=== PATIENT | male | born 1955 | race Caucasian/White ===

== ENCOUNTER → 2016-05-31 | Outpatient (CLI) | payer OTHER ==
[~2016-05-31] MED LIST: ASPEC81 PO; ATOR10TA88 PO; CIME-56 PO; MULT-923 PO; RMCI IV
--- NOTE | 2016-06-06 17:09 | EEG Procedure Note ---
EEG Procedure Note Date of Service May 31, 2016. Start / End Times Start Time: 05/31/2016 at 1:42 PM End Time: 06/02/2016 at 1:17 PM Referring Physician Enrike Miller History This is a 61-year-old male with cognitive impairment and spells concerning for possible seizures. Ambulatory EEG for further evaluation of possible seizure etiology. Home Medication List Scheduled Aspirin (Aspirin EC Low Dose), 81 MG PO DAILY Cimetidine (Tagamet), 400 MG PO QID Infliximab (Remicade), 100 MG IV Q8WK Multiple Vitamins W/ Minerals (Multivitamin Men), 1 TAB PO DAILY Description This is a 21 electrode ambulatory EEG with a single channel dedicated to limited EKG. The electrodes were placed in accordance with the International 10- 20 system. There was noted to be a diffuse electrode artifact on June 01 between 12 AM and 6 AM and 10:46 PM to 6 AM on June 02. These periods of diffuse electrode artifact caused severe limitation in the region interpretation of the EEG during those times. At the start of the recording the patient was in an awake state. Background was well organized and composed of symmetric mixed alpha and beta frequencies. There was a symmetric well-formed moderate amplitude 10-11 Hz posterior dominant rhythm that was reactive to eye opening and closure. Sleep was indicated by vertex waves, symmetric sleep spindles, and slow wave sleep. Patient journal was returned and reviewed. Events were closely reviewed on EEG before and after reported events time. Patient reported a single possible clinical events 1:06 PM on 06/01/2016. Description was unusual feeling. On EEG there was noted to be 01 and EKG lead electrode artifact. Overall there was no changes to the normal awake background on EEG before and after the reported event. Interpretation This is a normal 48hr ambulatory EEG. There was no electrographic seizures or epileptiform discharges. Clinical Correlation There was no EEG correlation to single reported possible clinical event as described above. A normal EEG does not rule out epilepsy if there is a strong clinical concern or for clinical spell types not captured. While some normal sleep was captured on EEG in the afternoons and evening, there was significant severe diffuse electrical artifact over both nights that severely limiting nighttime recording and evaluation of his overnight sleep.
== END | disposition home or self-care (01) ==
LOC: C.NEUR 13:10
PROVIDERS: ATTEND Internal Medicine Geriatric Medicine
DX: G31.84 Mild cognitive impairment of uncertain or unknown etiology (principal)

== ENCOUNTER 2016-06-09 08:04 | Observation (INO) | payer OTHER ==
[~2016-06-09] VITALS: Ht 180.3 cm; Wt 85.4 kg
[~2016-06-09 08:04] MED LIST changes: -ATOR10TA88 PO
[2016-06-09] MEDS ORDERED: ATOR10TA88 PO (08:26)
--- NOTE | 2016-06-09 08:54 | EMERGENCY ROOM VISIT NOTE ---
History Report prepared by Rachel: Yaquelin Pickens Under the Supervision of: Dr. Aliyah Muñoz D.O. First contact with patient: 08:13 Chief Complaint: WEAKNESS Stated Complaint: STROKE LIKE SYMPTOMS/SEIZURE History of Present Illness The patient is a 61 year old male who presents to the Emergency Room with complaints of recurrent episodes of altered sensation in the past several months. Per patient's , the patient initially started having these episodes this past February. He also had a 7 episodes within a period of a few hours in the middle of April and was hospitalized at that time. Since then, he did not have any episodes until he had 2 episodes yesterday. This morning, he had a total of 3 episodes since waking up on his own around 6:30AM. Each episode is almost exactly the same and lasts between 5 and 30 seconds before resolving. During the episodes, he has a strange "electrical sensation" throughout his entire body, an odd taste in his mouth, and notices a burning smell. He is completely coherent during the episodes and does not need to sit down during them. He typically can continue on with whatever he was doing when the episode ends. He does not lose consciousness and does not feel like he is going to lose consciousness. Denies falling, loss of control of urine, visual changes, shaking , nausea, memory loss, or confusion during/after the episodes. He was awake and standing when the first episode occurred today. Since the episodes started in February, he has followed up with Dr. Miller of neurology. The patient had a 48 hour ambulatory EEG last week which was normal. He is scheduled for a Holter monitor next week. The patient states that he has a history of MCI (Mild Cognitive Impairment) and has some memory issues at baseline. Upon arrival to the emergency room today the patient is asymptomatic and feels normal. Source of History: patient, spouse/significant other Onset: a few months ago Position: other (Global) Quality: other (altered sensation) Timing: other (episodic) Associated Symptoms: No LOC, No nausea, No urinary symptoms Note: Other symptoms: "electrical sensation" throughout his entire body, odd taste in mouth, burning smell Review of Systems See HPI for pertinent positives & negatives. A total of 10 systems reviewed and were otherwise negative. Past Medical & Surgical Medical Problems: (1) Blurred vision (2) Crohns disease (3) MCI (mild cognitive impairment) Family History FH: cancer FH: gallbladder disease Social History Smoking Status: Never Smoker Marital Status: Housing Status: lives with family Occupation Status: retired Current/Historical Medications Scheduled Aspirin (Aspirin EC Low Dose), 81 MG PO DAILY Atorvastatin (Lipitor), 10 PO DAILY Cimetidine (Tagamet), 400 MG PO QID Infliximab (Remicade), 100 MG IV Q8WK Multiple Vitamins W/ Minerals (Multivitamin Men), 1 TAB PO DAILY Allergies Coded Allergies: No Known Allergies (Unverified , 06/09/16) Physical Exam Vital Signs Date Time Temp Pulse Resp B/P Pulse Ox O2 Delivery O2 Flow Rate FiO2 06/09/16 13:39 86 16 136/84 98 06/09/16 13:17 95 Room Air 06/09/16 13:17 91 16 131/87 95 Room Air 06/09/16 12:59 88 144/95 06/09/16 12:53 87 06/09/16 12:47 94 14 149/96 98 Room Air 06/09/16 12:33 104 18 155/96 97 Room Air 06/09/16 12:10 101 17 162/97 99 06/09/16 11:44 114 18 174/119 06/09/16 11:09 110 17 175/105 98 Room Air 06/09/16 09:50 103 18 185/97 99 Room Air 06/09/16 09:28 67 19 161/88 96 Room Air 06/09/16 08:27 88 06/09/16 08:07 36.8 99 15 158/92 100 Room Air Physical Exam HEENT: Head - normocephalic and atraumatic Pupils are equal, round, and reactive to light. Extraocular eye muscles are intact, and sclera are anicteric. Nose - moist nasal mucosa without discharge. Mouth - moist buccal mucosa. Oropharynx is nonerythematous and there is no tonsillar exudate or edema noted. Neck: Supple; no JVD, nuchal rigidity, cervical lymphadenopathy, or auscultated bruits. Heart: Regular rate and rhythm. There is a normal S1 and S2 with no murmurs, clicks, or gallops appreciated. Lungs: Clear to auscultation bilaterally with no wheezes, rales, or rhonchi. Abdomen: Soft, completely nontender, nondistended, with good bowel sounds. There are no palpable pulsatile masses or hepatosplenomegaly. There is no guarding, rigidity, or rebound noted. Extremities: No evidence of cyanosis, clubbing, or edema. There are easily palpable peripheral pulses. Skin: warm and dry with good turgor and no rashes. Medical Decision & Procedures Laboratory Results 06/09/16 08:20 Red Blood Count 4.83, Mean Corpuscular Volume 95.0, Mean Corpuscular Hemoglobin 32.9, Mean Corpuscular Hemoglobin Concent 34.6, Mean Platelet Volume 11.6, Neutrophils (%) (Auto) 44.2, Lymphocytes (%) (Auto) 42.9, Monocytes (%) (Auto) 9.3, Eosinophils (%) (Auto) 2.6, Basophils (%) (Auto) 0.6, Neutrophils # (Auto) 3.71, Lymphocytes # (Auto) 3.60, Monocytes # (Auto) 0.78, Eosinophils # (Auto) 0.22, Basophils # (Auto) 0.05 06/09/16 08:20 Test 06/09/16 08:20 White Blood Count 8.39 K/uL (4.8-10.8) Red Blood Count 4.83 M/uL (4.7-6.1) Hemoglobin 15.9 g/dL (14.0-18.0) Hematocrit 45.9 % (42-52) Mean Corpuscular Volume 95.0 fL (80-100) Mean Corpuscular Hemoglobin 32.9 pg (25-34) Mean Corpuscular Hemoglobin Concent 34.6 g/dl (32-36) Platelet Count 205 K/uL (130-400) Mean Platelet Volume 11.6 fL (7.4-10.4) Neutrophils (%) (Auto) 44.2 % Lymphocytes (%) (Auto) 42.9 % Monocytes (%) (Auto) 9.3 % Eosinophils (%) (Auto) 2.6 % Basophils (%) (Auto) 0.6 % Neutrophils # (Auto) 3.71 K/uL (1.4-6.5) Lymphocytes # (Auto) 3.60 K/uL (1.2-3.4) Monocytes # (Auto) 0.78 K/uL (0.11-0.59) Eosinophils # (Auto) 0.22 K/uL (0-0.5) Basophils # (Auto) 0.05 K/uL (0-0.2) RDW Standard Deviation 43.9 fL (36.4-46.3) RDW Coefficient of Variation 12.7 % (11.5-14.5) Immature Granulocyte % (Auto) 0.4 % Immature Granulocyte # (Auto) 0.03 K/uL (0.00-0.02) Anion Gap 6.0 mmol/L (3-11) Est Creatinine Clear Calc Drug Dose 62.7 ml/min Estimated GFR () 67.8 Estimated GFR (Non- 58.5 BUN/Creatinine Ratio 13.8 (10-20) Calcium Level 9.6 mg/dl (8.5-10.1) Total Bilirubin 0.4 mg/dl (0.2-1) Aspartate Amino Transf (AST/SGOT) 24 U/L (15-37) Alanine Aminotransferase (ALT/SGPT) 46 U/L (12-78) Alkaline Phosphatase 85 U/L (45-117) Total Creatine Kinase 56 U/L (39-308) Creatine Kinase MB 1.8 ng/ml (0.5-3.6) Creatine Kinase MB Ratio 3.2 (0-3.0) Troponin I < 0.015 ng/ml (0-0.045) Pro-B-Type Natriuretic Peptide 38 pg/ml (0-900) Total Protein 7.9 gm/dl (6.4-8.2) Albumin 4.1 gm/dl (3.4-5.0) Globulin 3.8 gm/dl (2.5-4.0) Albumin/Globulin Ratio 1.1 (0.9-2) Thyroid Stimulating Hormone (TSH) 2.810 uIu/ml (0.300-4.500) Laboratory results per my review. ECG Indication: weakness Rate (beats per minute): 92 Rhythm: normal sinus Findings: RBBB, no acute ischemic change, no ectopy Comparison ECG Date: 05/03/2016 Change: no significant change Change: 2nd in-hospital EKG: Sinus tachycardia at 124 BPM, bifascicular block, no ischemia or ectopy. 3rd in-hospital EKG: Normal sinus at 99 BPM, bifascicular block, no ischemia or ectopy. ED Course 0815: Past medical records reviewed. The patient was evaluated in room A10. A complete history and physical exam was performed. A twelve-lead EKG was obtained. 0832: I discussed the case with Dr. Paul Guerin Neurology. He recommended having a Holter monitor placed now if possible and follow up with neurology and his PCP. 0938: The cardiopulmonary lab does not have any monitors to place until Monday. 0944: I reassessed the patient and discussed discharge instructions with him. The patient got upset when I told him that he could not drive a vehicle and went into a tachycardic rhythm in the 170s. 1020: I reassessed the patient. While I was in the room, he had an episode with a strange smell in nose and his hands were shaking slightly. The episode lasted 5-7 seconds. There were no EKG changes on the monitor during this episode. 1031: I discussed the case with Dr. Hector Guerin Cardiology. He will evaluate the patient in the ED. 1051: I reassessed the patient and updated him on the plan. He said that he now refuses to see [facility] because his health insurance has changed and won't cover [facility] providers. 1058: I discussed the case with Dr. Merritt [place] [facility]. He will evaluate the patient in the ED. 1059: I spoke with Dr. Young and told him he no longer needed to be involved in the patient's case. 1155: I had a long conversation with Dr. Merritt regarding the case. 1232: Upon reevaluation, I discussed findings and results with the patient and his . They verbalized agreement of the treatment plan. He again refused a [facility] doctor. 1247: I spoke with Dr. Sullivan of the [facility]. The patient will be evaluated for further management and care. Medical Decision The patient is a 61 year old male who presents to the ED with episodes of altered sensation. Differential diagnosis includes anxiety, seizure, tremor. Patient has a history of these episodes that involve different smells and electrical sensations throughout his body. He has had a previous EKG, TRACEY, 48 hour EEG and evaluation by neurology. The patient was hypertensive while here in the emergency department. During most of his stay, he was tachycardic. He became quite tachycardic when he was upset with the discussion about his driving privileges. [employer] evaluated him here in the ER and felt that he would require further inpatient care to workup this tachycardia, hypertension, and these episodes that he describes. The patient is resting comfortably now here in the emergency department. He has remained hemodynamically stable. I discussed the case with the [facility] hospitalist group and they will evaluate for further management. Consults Time Called: 08 Consulting Physician: Dr. Paul Guerin Neurology Returned Call: 0832 I discussed the case with him. He recommended having a Holter monitor placed now if possible and follow up with neurology and his PCP. Additional Consults: Time Called: 1025 Consulted Physician: Dr. Hector Guerin Cardiology Returned Call: 1031 Additional Comments: I discussed the case with him. He will evaluate the patient in the ED. Time Called: 1052 Consulted Physician: Dr. Shaina [place] [facility] Returned Call: 1056 Additional Comments: I discussed the case with him. He will evaluate the patient in the ED. OTHER CONSULTS: 1059: I spoke with Dr. Hector Guerin Cardiology and told him he no longer needed to be involved in the patient's case. 1155: I had a long conversation with Dr. Shaina York [facility] regarding the case. 1247: I spoke with Dr. Sullivan of the [facility]. The patient will be evaluated for further management and care. Impression Primary Impression: Tachycardia Additional Impression: Hypertension Scribe Attestation The scribe's documentation has been prepared under my direction and personally reviewed by me in its entirety. I confirm that the note above accurately reflects all work, treatment, procedures, and medical decision making performed by me. Departure Information Dispostion Being Evaluated By Hospitalist Referrals Valentina Jay D.O. (PCP) Patient Instructions My [facility] Problem Qualifiers Additional Impression:
[2016-06-09] MEDS ORDERED: METOPROLOL TARTRATE 1 MG/ML VIAL IV STA (12:37)
[2016-06-09 13:17] VITALS: O2SAT 95; Ht 180.3 cm; Wt 85.4 kg
[2016-06-09] MEDS ORDERED: NITROGLYCERIN 0.4 MG SL PER TAB CHARGE SL PRN (14:00)
[2016-06-09] MEDS ORDERED: ZOLPIDEM TARTRATE 5 MG TAB PO PRN (14:00)
[2016-06-09] MEDS ORDERED: ACETAMINOPHEN 325 MG TAB PO PRN (14:00)
[2016-06-09] MEDS ORDERED: ONDANSETRON INJ 2 MG/ML 2 ML VIAL IV PRN (14:00)
--- NOTE | 2016-06-09 14:00 | CARDIOLOGY CONSULTATION ---
DATE OF CONSULTATION: 06/09/2016 CONSULTING PHYSICIAN: Dr. Muñoz. REASON FOR CONSULTATION: Tachycardia and neurologic symptoms. HISTORY OF PRESENT ILLNESS: Mr. Altamirano is a 61-year-old gentleman with a history significant for a right bundle-branch block and left anterior fascicular block, mild cognitive impairment, Crohn's disease, and neurologic complaints, presented to the ER with recurrent neurologic events. His neurologic events are described as a funny feeling running throughout his entire body accompanied by a strange taste or smell. The symptoms last for a few seconds and then spontaneously resolved. There is no specific trigger for these symptoms. His has noted on a rare occasion, there is also some shaking of his hands. These symptoms initially started in February of 2016. He had 7 episodes in April, which prompted a hospitalization, which also lead to a transesophageal echo performed by Dr. Young. This was unremarkable for any ASD or PFO. He had one episode yesterday, 3 episodes prehospital and actually one episode while on telemetry while Dr. Muñoz was in the room with him. These symptoms can occur at anytime such as sitting, standing, or lying in bed. Currently, he feels back to his baseline. He denies any chest pain, shortness of breath, syncope, near syncope, palpitations, lightheadedness, dizziness, or edema. He denies any of these symptoms during his neurologic episodes. He did have one episode of syncope greater than 10 years ago after carpal tunnel syndrome. This occurred immediately following suture removal from his hand. He has not had any recurrent syncope or near syncope. He brought with him today on his smart phone list of his blood pressure and heart rate at home. For the past month, his blood pressure has been normotensive and sometimes slightly hypotensive with systolic blood pressures in the 90s. His heart rate other than on one occasion, was greater than 100 on a consistent basis, ranging up into the 120s. When reviewing old hospitalization records, his heart rate is typically not tachycardic. He denies any recent fevers, chills, abdominal pain, nausea, vomiting, melena, hematochezia, hematuria, diarrhea, stroke, rash, or abdominal pain. He did have a lumbar punctures in the past x2 when he was being evaluated for Lyme disease. He was treated with an oral outpatient course. This was in 2011, in April. He follows with Dr. Miller for neurology as an outpatient for mild cognitive impairment. He is scheduled to see him next week. He also had an outpatient Holter monitor scheduled for early next week to evaluate for any arrhythmias as cause of his symptoms. REVIEW OF SYSTEMS: As above and otherwise review of systems is unremarkable. PAST MEDICAL HISTORY: 1. Crohn's disease. 2. Cognitive impairment. 3. Denies a formal history of dyslipidemia, but has been on statin therapy. HOME MEDICATIONS: Include: 1. Aspirin 81 mg daily. 2. Lipitor 10 mg daily. 3. Tagamet 400 mg p.o. q.i.d. since the . 4. Remicade 100 mg IV q. 8 weeks. 5. Multivitamin. ALLERGIES: No known drug allergies. SOCIAL HISTORY: Denies tobacco, alcohol or drug abuse. He is and lives with his . He has no children. 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 His is present at the bedside. FAMILY HISTORY: Father had myocardial infarction in his 50s. PHYSICAL EXAMINATION: VITAL SIGNS: Temperature 36.8 degrees, heart rate was in the low 100s throughout today's visit at the bedside, respiratory rate 14, blood pressure 174/119 mmHg, and oxygen saturation 98% on room air. GENERAL: No acute distress. He is alert and oriented x3. HEENT: Anicteric sclerae. NECK: No appreciable JVD. No bruits. Normal carotid upstrokes bilaterally. CARDIAC EXAMINATION: PMI was nonpalpable. There was no ventricular heave. Tachycardic, but regular, normal S1 and S2. No murmurs, rubs, or gallops were auscultated. LUNGS: Clear to auscultation bilaterally without wheezes, rales or rhonchi. ABDOMEN: Soft, nontender, and nondistended. Normoactive bowel sounds. No bruits noted. EXTREMITIES: 2+ radial pulses bilaterally. 2+ dorsalis pedis pulses bilaterally. No cyanosis. No palpable cords. No pitting edema. PSYCHIATRIC: Affect appears appropriate. Telemetry personally reviewed. Sinus tachycardia. He became more tachycardic when he became visibly upset in the Emergency Department, but the rhythm remains sinus. At approximately 10:23, he had another episode of a strange taste/smell and there were no arrhythmias at that time. There were no pauses or high grade block. ECGs personally reviewed. Initial ECG sinus rhythm at 92 beats per minute. Right bundle-branch block. Left anterior fascicular block. Not significantly changed from 05/03/2016 ECG. Repeat ECG demonstrated sinus tachycardia at 124 beats per minute. Right bundle-branch block and left anterior fascicular block. LABORATORY DATA: From April 2016 were reviewed. Labs on 05/05/2016, white blood cell count 7.98, hemoglobin 15.3, and platelets 206. Labs on 05/03/2016 demonstrated sodium 141, potassium 3.7, BUN 17, and creatinine 1.3. TSH 7.7 and magnesium 2.3. Tox screen was negative on 05/04/2016. Urinalysis was also unremarkable at that time. Brain MRI on 05/04/2016 report reviewed. No acute intracranial findings. No masses. Mild presumed small vessel disease per radiology. Neck MRA on 05/05/2016: No significant stenosis, occlusion, or dissection within the carotid or vertebral arteries. Transesophageal echo on 05/05/2016: Images personally reviewed. LV systolic function appeared normal. There were no significant valvular abnormalities. No visualized ASD. ASSESSMENT AND PLAN: 1. Right bundle-branch block and left anterior fascicular block: Agree with outpatient monitoring to monitor for any significant block. This does not appear to be related to his neurologic symptoms. 2. Neurologic symptoms: Etiology uncertain. He had an episode while on telemetry and there was no arrhythmia that corresponds with such. Therefore, arrhythmias not playing a role in his symptoms. Recommend a neurology evaluation. He has been evaluated by neurology in the past. 3. Hypertension/hypertensive urgency: His blood pressure is typically well controlled according to his home blood pressure cuff, but he is significantly hypertensive here. Would recommend inpatient monitoring given presentation with neurologic symptoms in the setting of severe hypertension. Workup, as appropriate, per hospitalist service. 4. Tachycardia: He appears to have been tachycardic at home for at least the past month. When reviewing other hospitalizations, he was not typically tachycardic at that time. There were no new labs done yet at this admission and therefore recommend CBC, basic metabolic panel, TSH, and magnesium levels. Labs are being ordered at this time by Dr. Muñoz. Also, could consider infectious workup if appropriate; however, there does not appear to be any obvious infection at this time. If there is a leukocytosis, however, would further evaluate. If he is found to have inappropriate sinus tachycardia, could start low dose beta emily especially given his hypertension. Would first like to evaluate for any causes of tachycardia, however. Tagamet can cause tachycardia; however, he believes that he has been on that medications since the without any recent change in dose. If he remains tachycardic, could consider discontinuation of Tagamet if okay with his GI doctor. 5. Disposition: Plan of care has been discussed with Dr. Muñoz in the Emergency Department. Admission is recommended at this time for possible hypertensive urgency given neurologic symptoms with significant elevation in blood pressure. Please feel free to call for any other questions or concerns. Thank you for allowing me to participate in the care of Mr. Dean Hobbseric. Sincerely,
[2016-06-09 14:31] VITALS: O2SAT 96
--- NOTE | 2016-06-09 14:35 | History and Physical ---
History & Physical Date & Time of Service: Jun 09, 2016 at 14:00 Chief Complaint: Strange body sensation, abnormal smell and taste Primary Care Physician: No Doctor, Assigned History of Present Illness Source: patient, family Mr. Altamirano is a 61-year-old male with a history of mild cognitive impairment , Crohn's disease maintained on Remicade, and dyslipidemia. He was admitted here in April 2016 after complaining of recurrent episodes of a strange sensation coming over his body associated with apparent olfactory and gustatory hallucinations. He can only vaguely describe the sensation that comes over his body, saying that it feels "electric" or like a numbness that affects his entire body from the shoulders down. The episodes are very brief, lasting only seconds at a time. During his admission in April 2016, he was seen by Neurology and subsequently underwent MRI/MRA head and MRA neck, as well as an EEG. These tests were non-revealing, and he was discharged home. He also had a 48-hour ambulatory EEG between 05/31-06/02/2016 that was reported as normal. He was scheduled for a 48-hour Holter next week. This morning, he reports having 3 more episodes that he says were the same as his previous episodes, prompting him to seek care in the ED. In the ED, he says that he had a 4th episode witnessed by the ED physician. Also, he was noted to be tachycardic to the 170s on the monitor. EKG initially showed NSR with a left anterior fascicular block and a right bundle branch block. Repeat EKG showed sinus tachycardia at a rate of 124bpm. The LAFB and RBBB were again present. He was evaluated by Cardiology in the ED and recommended admission for observation. The patient denies any recent illness. He denies headache, chest pain, palpitations, cough, dyspnea, abdominal pain, nausea, vomiting, or diarrhea. He denies any urinary symptoms, focal weakness, or paresthesia. 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 Physical Exam Vital Signs Date Time Temp Pulse Resp B/P Pulse Ox O2 Delivery O2 Flow Rate FiO2 06/09/16 13:39 86 16 136/84 98 06/09/16 13:17 95 Room Air 06/09/16 13:17 91 16 131/87 95 Room Air 06/09/16 12:59 88 144/95 06/09/16 12:53 87 06/09/16 12:47 94 14 149/96 98 Room Air 06/09/16 12:33 104 18 155/96 97 Room Air 06/09/16 12:10 101 17 162/97 99 06/09/16 11:44 114 18 174/119 06/09/16 11:09 110 17 175/105 98 Room Air 06/09/16 09:50 103 18 185/97 99 Room Air 06/09/16 09:28 67 19 161/88 96 Room Air 06/09/16 08:27 88 06/09/16 08:07 36.8 99 15 158/92 100 Room Air General Appearance: no apparent distress Head: normocephalic, atraumatic Eyes: PERRL, sclerae normal ENT: pharynx normal Neck: no JVD, trachea midline Respiratory/Chest: lungs clear, normal breath sounds, no respiratory distress Cardiovascular: regular rate, rhythm, no gallop, no murmur Abdomen/GI: normal bowel sounds, non tender, soft Back: normal inspection Extremities/Musculoskelatal: no pedal edema Neurologic/Psych: alert, normal mood/affect, oriented x 3 Skin: normal color, warm/dry Diagnostics Laboratory Results Results Past 24 Hours Test 06/09/16 12:37 Range/Units Creatine Kinase MB Ratio 0-3.0 EKG EKG #1 Normal sinus rhythm Possible Left atrial enlargement Right bundle branch block Left anterior fascicular block Bifascicular block Abnormal ECG When compared with ECG of 03-MAY-2016 22:49, No significant change was found EKG #2 Sinus tachycardia Possible Left atrial enlargement Right bundle branch block Left anterior fascicular block Bifascicular block Abnormal ECG When compared with ECG of 09-JUN-2016 08:18, (unconfirmed) No significant change was found Impression Assessment and Plan (1) Abnormal EKG Status: Acute Assessment & Plan: Unclear if dysrhythmia could be contributing to his symptoms. Will keep on a monitor and await further recommendations from Cardiology. (2) Neurologic disorder Status: Acute Assessment & Plan: Etiology of these episodes remains unclear. I question whether he is having gustatory and olfactory hallucinations as part of his neurodegenerative disease. This wouldn't seem to explain the odd sensation he gets over his body or the fact that all these symptoms occur simultaneously. Neurology consulted. Will follow up their recs. He's already had non- revealing MRI, EEG, and 48-hour EEG. (3) MCI (mild cognitive impairment) Status: Chronic Assessment & Plan: Appears stable. Not on any medications. (4) Crohns disease Status: Chronic Assessment & Plan: Appears stable on Remicade as outpatient. Level of Care Telemetry Advanced Directives Existing Advance Directive: Yes Existing Living Will: Yes Existing Power of Optical Coating Technician: Yes VTE Prophylaxis VTE Risk Assessment Done? Y/N: Yes Risk Level: Low Given or contraindicated: Treatment not indicated
[2016-06-09 15:05] LABS: BASO % 0.6 %; BASO ABS # 0.05 K/uL (0-0.2); COMPLETE YES; EOS % 2.6 %; HEMATOCRIT 45.9 % (42-52); IG% 0.4 %; LYMPH % 42.9 %; MEAN CORPUSCULAR HEMOGLOBIN 32.9 pg (25-34); MEAN CORPUSCULAR HGB CONC 34.6 g/dl (32-36); MEAN PLATELET VOLUME 11.6 fL (7.4-10.4); MONO % 9.3 %; NEUT % 44.2 %; PLATELET COUNT 205 K/uL (130-400); RED BLOOD COUNT 4.83 M/uL (4.7-6.1); WHITE BLOOD COUNT 8.39 K/uL (4.8-10.8)
[2016-06-09 15:14] LABS: ALT/SGPT 46 U/L (12-78); BLOOD UREA NITROGEN 18 mg/dl (7-18); BUN/CREATININE RATIO 13.8 (10-20); CALCIUM 9.6 mg/dl (8.5-10.1); CARBON DIOXIDE 27 mmol/L (21-32); CHLORIDE 109 mmol/L (98-107); GLUCOSE 111 mg/dl (70-99); POTASSIUM 4.7 mmol/L (3.5-5.1); SODIUM 142 mmol/L (136-145)
[2016-06-09 15:24] LABS: ALB/GLOB RATIO 1.1 (0.9-2); ALKALINE PHOSPHATASE 85 U/L (45-117); AST/SGOT 24 U/L (15-37); CKMB/CK RATIO 3.2 (0-3.0)
[2016-06-09] MEDS ORDERED: IV FLUIDS COMPLETED PRN (15:30)
[2016-06-09] MEDS: CIMETIDINE 400 MG TAB PO SCH ×2 (17:39→20:51)
[2016-06-09 19:13] VITALS: BP 135/86; PULSE 67; TEMP 37; O2SAT 97
[2016-06-10 00:09] VITALS: BP 152/86; PULSE 78; TEMP 36.5; O2SAT 98
[2016-06-10 04:19] VITALS: BP 114/72; PULSE 70; TEMP 36.5; O2SAT 99
[2016-06-10 07:26] VITALS: BP 137/93; PULSE 87; TEMP 36.7; O2SAT 98
[2016-06-10] MEDS: CIMETIDINE 400 MG TAB PO SCH (07:55)
[2016-06-10] MEDS ORDERED: ATORVASTATIN 10 MG TAB PO SCH (09:00)
[2016-06-10] MEDS ORDERED: ASPIRIN 81 MG ECTAB PO SCH (09:00)
[2016-06-10] MEDS ORDERED: CEROVITE ADV FORMULA TAB PO SCH (09:00)
--- NOTE | 2016-06-10 09:48 | CARDIOLOGY PROGRESS NOTE ---
DATE: 06/10/2016 TIME: 8:50 a.m. SUBJECTIVE: He has not had any further episodes as described yesterday of the "funny feeling" and strange smell/taste in his mouth. Interestingly, metoprolol tartrate IV was ordered by Dr. Muñoz in the Emergency Department and by the time it was scheduled to be given his heart rate was no longer tachycardic. Since he moved to the floor, his blood pressure has improved significantly as well. After further discussion, it was recommended that he check his blood pressure at home if he has any further episodes and his stated that she has already done so. His blood pressure readings during his neurologic episodes have been normal. He denies chest pain, shortness of breath, syncope, near syncope, or palpitations. OBJECTIVE: VITAL SIGNS: Temperature 36.7 degrees, heart rate 87 beats per minute, respiration rate 20, blood pressure 137/93 mmHg, and oxygen saturation 98% on room air, weight 85.4 kg. GENERAL: No acute distress. He is alert. NECK: No JVD. CARDIAC EXAM: No ventricular heaves. Regular, normal S1, S2. No murmurs, rubs, or gallops were auscultated. LUNGS: Clear to auscultation bilaterally without wheezes, rales or rhonchi. ABDOMEN: Soft, nontender, nondistended. Normoactive bowel sounds. EXTREMITIES: No cyanosis or edema. PSYCHIATRIC: Affect appears appropriate. MEDICATIONS: Include aspirin 81 mg daily, Lipitor 10 mg daily, Tagamet 400 mg p.o. q.i.d. Telemetry personally reviewed. Sinus rhythm. No arrhythmia. There were brief episodes of sinus tachycardia since he moved to the floor. LABORATORY DATA: White blood cell count 8.39, hemoglobin 15.9, platelets 205. Sodium 142, potassium 4.7, BUN 18, creatinine 1.3. Troponin undetectable. Albumin 4.1, TSH 2.8. Pro-brain natriuretic peptide 38. ECG performed this morning personally reviewed. Sinus rhythm, 74 beats per minute, right bundle-branch block, left anterior fascicular block. No significant change from yesterday. ASSESSMENT AND PLAN: 1. Sinus tachycardia: This has resolved. He admits that he was a bit worked up while in the ER. Interestingly, however, he was tachycardic at home according to his home readings. If he has recurrent sustained episodes of sinus tachycardia without known etiology, it could be due to inappropriate sinus tachycardia versus anxiety. If no anxiety, could treat with low-dose beta-emily. No medication recommended at this time; however. This would not be related to his neurologic symptoms. 2. Right bundle-branch block and left anterior fascicular block: We discussed this diagnosis. He has had it for many years. If he should develop more advanced block he could develop complete heart block; however, this may or may not ever occur. He was instructed to seek out medical attention immediately for exertional symptoms or syncope. No treatment necessary at this time. This is not related to his neurologic symptoms. 3. Hypertension: Severe hypertension resolved once he left the Emergency Department. He admits that he was quite anxious while in the ER. Blood pressure readings have been normal at home. He was asked to take his blood pressure cuff to his next PCP visit to make sure that it correlates well. 4. Neurologic symptoms: This does not appear to be related to cardiac etiology. He had an episode on telemetry and there were no arrhythmias. Neurology consultation is pending. 5. Disposition: No further evaluation from a cardiac perspective at this time. He is scheduled for a Holter monitor as an outpatient. He has been on telemetry here though since yesterday and no arrhythmias have been noted. From a cardiac perspective, an outpatient Holter monitor will not likely add much at this point as his neurologic symptoms are not related to arrhythmia as he was wearing a monitor with neurologic symptoms and no arrhythmia occurred. Cardiology signing off at this time. He does not need to follow up with cardiology as an outpatient as there is no active cardiac issue at this time. Thank you for allowing me to participate in the care of Mr. Altamirano.
[2016-06-10 11:25] VITALS: BP 131/85; PULSE 92; TEMP 36.5; O2SAT 97
--- NOTE | 2016-06-10 11:37 | Medical Student: [facility] ---
Med Student History & Physical Date & Time of Service: Jun 10, 2016 at 10:18 Chief Complaint: Brief episodes of sensory dysfunction Primary Care Physician: No Doctor, Assigned History of Present Illness Source: patient, spouse, hospital records Mr. Altamirano is a 61-year-old male who presented to the ED on 06/09 with complaints of repeated sensory symptoms including olfactory and gustatory hallucinations as well as a feeling throughout his body of electricity. He describes an aura that precedes the full body sensation as either a burning smell or a metallic taste. He first noticed these symptoms in February. He described a sensation of his body feeling a strange energy through out. He states that this did not last longer than a few seconds. These symptoms occurred twice. He subsequently presented to the ED that day. He had 5 similar episodes in April prompting presentation to the ED on 05/03. On this admission he received a 24-hour EEG that did not show any sign of seizure activity, although he did not one episode during the test. He also received an MRI of the head and MRA of the head and neck, all of which were unremarkable. He experienced 3 of these episodes on 06/09 prior to presenting to the hospital. He also had one such episode while in the ED. It was noted that his hands were shaking and his heart rate calista to 170bpm. EKG revealed bifascicular block and right bundle branch block. Cardiology consult concluded minimal concern for cardiologic origin of symptoms. Patient had been seeing Dr. Miller at [facility] for outpatient neurology. He has a past history of undefined neurodegenerative disease. He has had symptoms of cognitive impairment present for the past 4 and a half years. He describes short term memory loss and impaired attentiveness. He denies progression in symptoms, but they are persistent. He believes that the symptoms presented over a period of about six months. He was evaluated in [place] for these symptoms. 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 He recalls one headband like rash several months prior to the symptoms. Lyme titers in blood were positive, two LP's were performed with results not displaying CERTIFIED REGISTERED DENTAL ASSISTANT involvement. He was treated twice with oral antibiotics, but never received IV antibiotics. He continues to have short term memory issues without improvement. He denies any changes in personality or social behavior, and is able to perform tasks such as paying bills and doing arithmetic. He was placed on a Exelon patch by Dr. Mateer , but stopped after side effects of lethargy and hypersomnolence. He has a past medical history of inflammatory bowel disease diagnosed in the 70' s, currently treated by Remicade. No family history of known early onset dementia, or seizures He denies loss of bowel or bladder control, weakness, numbness, paresthesias. He does have some decrease in smell that he has noticed over the past few years. 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 He first noticed forgetfulness at work leading to his halfway. Lives at home with . 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 Physical Exam Vital Signs (24 Hours) Date Time Temp Pulse Resp B/P Pulse Ox O2 Delivery O2 Flow Rate FiO2 06/10/16 08:00 Room Air 06/10/16 07:26 36.7 87 20 137/93 98 Room Air 06/10/16 04:19 36.5 70 18 114/72 99 Room Air 06/10/16 04:00 Room Air 06/10/16 00:09 36.5 78 18 152/86 98 Room Air 06/10/16 00:00 Room Air 06/09/16 20:00 Room Air 06/09/16 19:13 37.0 67 16 135/86 97 Room Air 06/09/16 16:07 77 15 145/100 Room Air 06/09/16 14:31 81 15 136/85 96 06/09/16 13:39 86 16 136/84 98 06/09/16 13:17 95 Room Air 06/09/16 13:17 91 16 131/87 95 Room Air 06/09/16 12:59 88 144/95 06/09/16 12:53 87 06/09/16 12:47 94 14 149/96 98 Room Air 06/09/16 12:33 104 18 155/96 97 Room Air 06/09/16 12:10 101 17 162/97 99 06/09/16 11:44 114 18 174/119 06/09/16 11:09 110 17 175/105 98 Room Air General Appearance: WD/WN, no apparent distress Head: normocephalic, atraumatic Eyes: normal inspection, PERRL, EOMI Neurologic/Psych: alert, normal mood/affect Mental status: Alert, oriented to person, place, and time. Affect is somewhat flat. Recall forgetfulness of two out of three objects. No aphasia or dysarthria. 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 Does not repeat himself. Follows commands. Recognizes objects. Able to perform serial 7's from 100, and spell world backwards. Cranial Nerves: CN1: not assessed CN2: visual acuity intact, visual field intact, funduscopic exam normal CN3, 4, 6: PERRL, EOMI CN5: sensation intact bilaterally in 3 regions of face. CN7: facial movements appropriate without noticeable droop. CN8: hearing intact bilaterally. CN9, 10: palate elevation symmetric CN11: shoulder shrug bilaterally intact CN12: sticks out tongue midline. Motor: Strength is 5/5 in deltoids, biceps, finger route rider, knee extension and hip extension bilaterally. Patellar reflex hypoactive on right side compared to left , otherwise symmetric reflexes throughout. No rigidity or spasticity. No atrophy. Babinski downgoing bilaterally. Slight intention tremor is noticed Sensory: Light touch and vibratory sensation is intact bilaterally throughout upper and lower extremities. Cerebellar: gait not assessed, Romberg's sign not assessed. [id number] and [id number] normal bilaterally. Impression Assessment and Plan Assessment: 61-year-old male with an undefined neurodegeneration presenting with periodic brief sensory dysfunction described as an electric feeling throughout body preceded by olfactory and gustatory hallucinations. Symptoms rise possibility for partial seizures arising from the uncal region. It is possible that an EEG would not appreciate this seizure activity. Symptoms could be related to neurodegeneration, although patient interview did not reveal an appreciated cognitive impairment. Patient's awareness through out episodes and only sensory symptoms exclude complex seizures. Normal MRI from April likely excludes infarction, hemorrhage, abscess, or neoplasm as cause. Encephalitis was entertained as a possible cause of seizure activity, but unlikely to be persistent for months without causing further complications, as well as lack of fever and headache. Lyme encephalitis not likely due to negative LP's in the past. Plan: -Possible Sensory disorder: cannot rule out partial seizure disorder. Would recommend follow-up at an [facility] center. Would not recommend anti- seizure medication at this time. -Neurodegenerative disorder: Unknown diagnosis. Extensive evaluation has been performed by [facility] neurology. Neuropsych evaluation has also been performed in [place] without any likely diagnosis. Advanced Directives Existing Advance Directive: Yes Existing Living Will: Yes Existing Power of Senior Bioinformatics Specialist: Yes
--- NOTE | 2016-06-10 11:49 | Neurology Consultation ---
Neurology Consultation Date of Consultation: Jun 10, 2016. Attending Physician: Chucho Monahan MD Primary Care Physician: No Doctor, Assigned Reason for Consultation: Unusual sensory symptoms History of Present Illness Source: patient, hospital records The patient is a 61-year-old male with a chief complaint of episodic gustatory and olfactory symptoms that began in February 2016. He complains of an unusual metallic taste that occurs suddenly, without obvious precipitating factor. He sometimes feels as if something is coming over him. There is no associated loss of awareness or consciousness. He has called out to his during one of these episodes. He was able to interact with her during this spell and exhibited shaking of both hands. Shaking of the limbs is typically accompany these episodes. The spells reportedly lasted only a few seconds and spontaneously resolve. He denies an associated feeling of anxiety. In addition to report gustatory symptom, the patient has also experienced episodic olfactory symptoms which she describes as the perception or odor of charcoal. The patient does not find either of these sensory perceptions to be noxious or bothersome. He experienced multiple attacks in February and sporadic attacks in the following months, again without obvious triggering factor. He experienced a recent flurry of these symptoms prior to this most recent hospitalization. Past medical history is significant for an undifferentiated neurocognitive disorder which reportedly began about 4-1/2 years ago while he was living in [place]. He describes an incident at work where he made a significant error potentially related to inattentiveness or problems with memory. His reports that he had been exhibiting some problems with driving directions and task completion at home at that time as well. Both the patient and his also reports some difficulty with short-term memory although he does not really repeat himself consistently. His does not think he has exhibited any significant changes in behavior or personality. He denies experiencing any significant changes in sleep pattern. These cognitive symptoms have been persistent. The patient is aware of his reported cognitive problem and does not rely excessively on his to provide historical information. These cognitive difficulties ultimately resulted in the loss of his job and disability due to what sounds like an undifferentiated neurocognitive disorder. The patient reports that he underwent neuropsychological testing in [place] on several occasions including some testing that was done within the past few months. He is unaware of any specific diagnosis that may been provided. The patient has been following with either Dr. Lorenz or Dr. Miller, [facility] neurology for his condition. They report that he did not tolerate a trial of the Exelon patch as apparently resulted in extreme somnolence. They have declined trials of additional medications for cognitive impairment. The patient has also completed several electroencephalograms recently including a routine EEG was interpreted by Dr. Miller and an extended ambulatory EEG interpreted by Dr. Conrad. No abnormalities were found on these tests. An event was apparently captured with ambulatory EEG. No EEG correlate was observed, however. The patient reports a history of treatment for Lyme disease with 2 courses of doxycycline. He indicates this diagnosis was made within a few weeks of the onset of his cognitive difficulties over 4 years ago. He also recalls having a lumbar puncture completed and was told that the results were negative for CERTIFIED ETHICAL HACKER Lyme disease. Prior to following with [facility] neurology, the patient had been following with a neurology practice in [place]. Past Medical/Surgical History Medical Problems: (1) Hypertension Status: Acute (2) Tachycardia Status: Acute (3) Visual disturbance Status: Acute (4) Weakness Status: Acute Family History No known family history of early onset dementia or unusual neurodegenerative disease. No known family history of epilepsy. 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) Allergies Coded Allergies: No Known Allergies (Unverified , 06/09/16) Current Inpatient Medications Current Inpatient Medications Medications (Trade) Dose Ordered Sig/Celi Route Start Time Stop Time Status Last Admin Dose Admin Acetaminophen (Tylenol Tab) 650 mg Q4H PRN PO 06/09/16 14:00 07/09/16 13:59 Zolpidem Tartrate (Ambien Tab) 5 mg HSZ PRN PO 06/09/16 14:00 07/09/16 13:59 Ondansetron HCl (Zofran Inj) 4 mg Q6H PRN IV 06/09/16 14:00 07/09/16 13:59 Nitroglycerin (Nitrostat Tab) 0.4 mg UD PRN SL 06/09/16 14:00 07/09/16 13:59 Aspirin (Ecotrin Tab) 81 mg DAILY PO 06/10/16 09:00 07/10/16 08:59 06/10/16 07:56 81 MG Atorvastatin Calcium (Lipitor Tab) 10 mg DAILY PO 06/10/16 09:00 07/10/16 08:59 Cimetidine (Tagamet Tab) 400 mg QID PO 06/09/16 17:00 07/09/16 16:59 06/10/16 07:55 400 MG Multivitamins/ Minerals (Multivitamin W/ Minerals Tab) 1 tab DAILY PO 06/10/16 09:00 07/10/16 08:59 06/10/16 07:56 1 TAB Miscellaneous (Iv Fluids Completed) 1 ea PRN PRN N/A 06/09/16 15:30 06/09/17 15:29 Review of Systems The patient denies fever, chills, vision loss, hearing loss, vertigo, chest pain , palpitations, shortness of breath, coughing, wheezing, abdominal pain, diarrhea, inability to restrain bowel movements, urinary incontinence, dysuria, myalgia, arthralgia, rash, skin lesions, easy bleeding, swollen glands, depression, anxiety, insomnia. A full 10 point review of systems was obtained from this patient and is as described in the history of present illness and otherwise described above. Physical Exam Vital Signs (Past 24 Hrs): Date Time Temp Pulse Resp B/P Pulse Ox O2 Delivery O2 Flow Rate FiO2 06/10/16 08:00 Room Air 06/10/16 07:26 36.7 87 20 137/93 98 Room Air 06/10/16 04:19 36.5 70 18 114/72 99 Room Air 06/10/16 04:00 Room Air 06/10/16 00:09 36.5 78 18 152/86 98 Room Air 06/10/16 00:00 Room Air 06/09/16 20:00 Room Air 06/09/16 19:13 37.0 67 16 135/86 97 Room Air 06/09/16 16:07 77 15 145/100 Room Air 06/09/16 14:31 81 15 136/85 96 06/09/16 13:39 86 16 136/84 98 06/09/16 13:17 95 Room Air 06/09/16 13:17 91 16 131/87 95 Room Air 06/09/16 12:59 88 144/95 06/09/16 12:53 87 06/09/16 12:47 94 14 149/96 98 Room Air 06/09/16 12:33 104 18 155/96 97 Room Air 06/09/16 12:10 101 17 162/97 99 06/09/16 11:44 114 18 174/119 06/09/16 11:09 110 17 175/105 98 Room Air The patient is a well-developed, well-nourished, elderly male. His is at bedside. He is pleasant, nonagitated, and in no acute distress. The patient is alert and oriented to person place and time. He exhibits normal attention and concentration. He is able to spell world backwards and performs serial sevens without difficulty. He did have some difficulty with short-term memory, one out of 3 objects with delayed recall. Remote memory intact. He is able to name objects, repeat phrases, and reads text. He identifies a complex visual scene without difficulty. Fund of knowledge and vocabulary normal. He follows complex multistep commands without difficulty. Visual rodgers full to confrontation. Visual acuity normal. Pupils equal round reactive to light and accommodation. Eye movements normal. No nystagmus. Facial sensation intact. There is normal facial symmetry and strength. No facial droop. Palate elevates to midline. Tongue protrudes to midline. No lingual atrophy. Shoulder shrug and hearing intact bilaterally. Sensation intact to light touch, temperature, vibration, and proprioception for the arms and legs. Deep tendon reflexes 2+ for the upper and lower limbs bilaterally. Plantar responses downgoing. There is no dysmetria with finger to nose or heel to villalobos bilaterally. There is no difficulty with rapid alternating movements. Ophthalmoscopic examination reveals normal- appearing optic nerves and posterior elements. No papilledema. No hemorrhages. Carotid pulses normal bilaterally to auscultation, no bruits. Musculoskeletal examination reveals normal strength for the arms and legs proximally and distally. Muscle tone normal throughout. No atrophy or abnormal movements observed. Gait and station normal. Laboratory Results Past 24 Hours: The comprehensive metabolic panel and CBC were completed yesterday. No significant abnormalities observed. Imaging I reviewed the images and radiologist's interpretation of this patient's brain MRI that was completed 05/04/2016 at [facility]. The study reveals mild age-related generalized atrophy and minimal small vessel ischemic change. The ventricular size is normal. The atrophy pattern is unremarkable. No significant abnormalities are present. Impression Although this patient reports a history of cognitive impairment that ultimately resulted in loss of his job and disability status, he seemed to perform fairly well on brief bedside cognitive testing and did not exhibit deficits of orientation, concentration, attention, or executive function. He did have some apparent difficulty with testing of short-term memory which did not seem consistent with his intact cognitive functioning elsewhere. He was also able to relate a fairly good history of present illness that would not seem to be consistent with a significant amnestic dementia. However, this patient has had more detailed neuropsychological testing completed in [place] which may be more informative. Therefore, I'm unable to provide a more specific diagnosis other than mild neurocognitive disorder at this time. Furthermore, I'm unable to adequately explain this patient's reported episodic gustatory and olfactory perceptions. The symptoms are very brief and occur with varying frequency. At least one of these episodes occurred with bilateral hand shaking and preserved alertness and preserved ability to communicate which would suggest a nonphysiologic etiology or at least argue against a convulsive disorder. These episodic positive gustatory and olfactory perceptions would not be typical features of a neurodegenerative disease or major neurocognitive disorder. Encephalitis would be extremely unlikely given that the prolonged time course of symptoms without significant clinical deterioration, and normal testing evaluations previously. I'm unable to attribute his ongoing symptoms to "CERTIFIED ETHICAL HACKER Lyme disease." This issue was apparently excluded with lumbar puncture previously. Plan I explained to the patient and his that I am unable to provide a more specific diagnosis. I do not think additional testing is needed at this time. I suggested that he should be evaluated by an epilepsy specialist at [facility] to further exclude the possibility of partial complex seizures in spite of his negative workup locally. I suggested that he also seek evaluation with a dementia specialist to try and achieve a more specific diagnosis of his reported neurocognitive disorder. The patient indicates that he has seen a neurologist to [facility] as well. They were apparently unable to provide a specific diagnosis. This patient may choose to follow-up with me locally. If so, I will need to review records pertaining to his previous evaluations. I do not have any specific treatment recommendations. Please contact me if I may be of further assistance.
[2016-06-10 15:09] VITALS: BP 127/82; PULSE 81; TEMP 36.9; O2SAT 99
--- NOTE | 2016-06-10 15:11 | Discharge Instructions ---
Discharge Instructions Admission Reason for Admission: Abnormal Ekg Discharge Discharge Diagnosis / Problem: Hypertensive urgency, unspecified neurologic disorder Discharge Goals Goal(s): Decrease discomfort, Improve function, Increase independence Activity Recommendations Activity Limitations: resume your previous activity . Instructions / Follow-Up Instructions / Follow-Up Follow up with PCP with 1 week. Current Hospital Diet Patient's current hospital diet: AHA Diet (Heart Healthy) Discharge Diet Recommended Diet: AHA Diet (Heart Healthy) Pending Studies Studies pending at discharge: no Medical Emergencies . Who to Call and When: Medical Emergencies: If at any time you feel your situation is an emergency, please call 911 immediately. . Non-Emergent Contact Non-Emergency issues call your: Primary Care Provider Call Non-Emergent contact if: you have any medication questions . . "Provider Documentation" section prepared by Chucho Monahan. VTE Core Measure Inpt VTE Proph given/why not?: Treatment not indicated
--- NOTE | 2016-06-10 15:47 | DISCHARGE SUMMARY ---
DATE OF DISCHARGE: 06/10/2016. DISCHARGE DIAGNOSES: 1. Unspecified neurologic disorder. 2. Hypertensive urgency. 3. Sinus tachycardia. 4. Mild cognitive impairment. BRIEF HOSPITAL COURSE: Mr. Altamirano is a 61-year-old gentleman with a history of mild cognitive impairment who presented to the Emergency Department complaining of intermittent bizarre episodes that have been occurring over the past few months. She describes having sensation of electricity over his body associated with numbness from his shoulders down. During these episodes he also said that he can smell something burning and has a metallic taste in his mouth. The episodes are very brief lasting only a few seconds. He was admitted here in April 2016 and had a fairly extensive workup. MRI was nonrevealing. EEG was unremarkable and ambulatory EEG also was nonrevealing. While here in the ER he had an episode of sinus tachycardia to the 170s at which time he became very hypertensive. He admits that this is likely due to anxiety. He did have an episode of the odd sensation while he was in the ER and at the time there was no arrhythmia on telemetry. He previously had been set up with a Holter monitor to be started on Monday06/13/2016 however given that he had episodes of this while on the monitor and there was no correlating arrhythmia it is very unlikely that the Holter monitor will add any further information. He was evaluated by cardiology who agreed with no further cardiac workup. He was evaluated by neurology who recommended no further workup here but recommended that he follow up with an epilepsy specialist in [place] if his symptoms persist to exclude partial complex seizures. By this morning the patient is feeling well. He is eager for discharge and at this point he is discharged home in stable condition. DISCHARGE MEDICATIONS: 1. Aspirin 81 mg p.o. daily. 2. Atorvastatin 10 mg p.o. daily. 3. Tagamet 400 mg p.o. 4 times daily. 4. Remicade 100 mg IV q. 8 weeks which he takes for Crohn's disease. 5. Multivitamin. PHYSICAL EXAMINATION ON THE DAY OF DISCHARGE: GENERAL: The patient is awake, alert, oriented in no acute distress. HEAD, EYES, EARS, NOSE, AND THROAT: The sclera are nonicteric. Mucous membranes are moist. NECK: Trachea is midline. There is no JVD. RESPIRATORY: The lungs are grossly clear with fair air entry. He is not in any respiratory distress. CARDIOVASCULAR EXAMINATION: S1 and S2 are heard with regular rate and rhythm. There is no murmur, rub or gallop. ABDOMEN: Soft, nontender, nondistended. Bowel sounds are present. EXTREMITIES: Warm, well perfused without edema. SKIN: Warm and dry. There is no cyanosis or rash. MUSCULOSKELETAL: There is no chest wall tenderness. There are no joint effusions or joint tenderness. NEUROLOGIC: The patient is awake and alert. There are no obvious focal deficits. PSYCHIATRIC: The patient is calm and cooperative. DISCHARGE FOLLOW-UP INSTRUCTIONS: 1. Follow up with PCP within 1 week. 2. Follow up with epilepsy center at [place] if symptoms persist. DISCHARGE DIET: The patient should maintain a heart healthy regular diet as tolerated. DISCHARGE ACTIVITY: The patient may resume his usual activities as tolerated. He was counseled that he should not drive. Total time spent preparing this discharge was 30 minutes.
[2016-06-10 16:05] VITALS: BP 125/77; PULSE 78; TEMP 36.9; O2SAT 98
== END 2016-06-10 16:45 | disposition home or self-care (01) ==
LOC: ENRESERVTM → ENRESERVDT → C.EDB 08:06 → C.2T 14:10
PROVIDERS: ADMIT Hospitalist; ATTEND Hospitalist
DX: G98.8 Other disorders of nervous system (principal); I16.0 Hypertensive urgency; R00.0 Tachycardia, unspecified; G31.84 Mild cognitive impairment of uncertain or unknown etiology; K50.90 Crohn's disease, unspecified, without complications; E78.5 Hyperlipidemia, unspecified; Z79.899 Other long term (current) drug therapy; Z79.82 Long term (current) use of aspirin; Z83.79 Family history of other diseases of the digestive system; Z82.49 Family history of ischemic heart disease and other diseases of the circulatory system

== ENCOUNTER → 2016-09-05 | Outpatient (CLI) | payer OTHER ==
[~2016-09-05] MED LIST changes: +ATOR10TA82 PO
--- NOTE | 2016-09-05 15:11 | ELECTROENCEPHALOGRAPH REPORT ---
CLINICAL DIAGNOSIS: Questionable seizure. EEG DIAGNOSIS: Essentially normal during wakefulness and brief duration of drowsiness. DESCRIPTION OF TRACING: This EEG was done in the laboratory and is of good technical quality. A simultaneous video analysis of patient movement and behavior was obtained. Photic stimulation is performed. Brief bursts of drowsiness are recorded, but never sustained and fully developed stages of light sleep never developed. Under these conditions, there is evidence for what appears to be a normal background rhythm in the alpha range of up to 9-10 Hz of maximum frequency and 30 microvolts of maximum amplitude. This is maximum posterior head regions bilaterally symmetrical. Polymorphic mid frequency theta activity is seen over all head regions without clear focal or regional predominance. Anterior head region maximal bilaterally symmetrical low voltage fast activity in the beta range is present. Episodes of polymorphic moderate amplitude theta activity do occasionally appear and last up to several seconds and correlate more with episodes of drowsiness than anything else. There are no associated polyspike or spike wave bursts or any clinical manifestations during these bursts. Photic stimulation provokes modest driving response without photomyogenic or photoparoxysmal component. At no time during the waking or brief duration drowsy tracing is there evidence for potentially epileptogenic activity in the form of polyspike or spike wave bursts, focal sharp waves or focal spikes. INTERPRETATION: This electroencephalogram is essentially normal during wakefulness without evidence for focal or generalized encephalopathy and without evidence for potentially epileptogenic activity. Brief episodes of drowsiness recorded,were however of relatively short duration and are insufficient and make any diagnostic conclusions about any abnormalities that would occur during this interval of time unreliable If a seizure disorder is strongly suspected on clinical grounds a repeat tracing with prolonged sleep recording may be helpful. NATALIYA
== END | disposition home or self-care (01) ==
LOC: C.NEUR 09:32
PROVIDERS: ATTEND Psychiatry & Neurology Neurology
DX: R41.3 Other amnesia (principal)

== ENCOUNTER 2023-04-27 08:47 | Inpatient (IN) ==
--- NOTE | 2023-04-27 08:59 | Emergency Department Note ---
Impression & Plan Generalized weakness, COVID-19, Left rib fracture ED Provider Note HISTORY OF PRESENT ILLNESS: Patient is a 67-year-old male presenting with left lateral rib pain. Patient states that he thinks "something just popped out of place" when he was going to try to get out of bed 3 days ago. However, EMS provides further history that was obtained via the . Patient recently tested positive for COVID and has been too weak to get out of bed. He reportedly was showering yesterday when he had an witnessed fall in the shower and started complaining of pain after that. reported to EMS that the patient had "violent shaking episode" which led to him falling. He reportedly has these shaking episodes rather frequently. No reported seizure-like activity. Patient has a history of dementia. presents later to provide more history. Reports that the patient was finally able to shower yesterday after his medical cell carcinoma surgery with skin grafting. Reports that he was seated in a shower chair when he had one of his episodes of "shaking" and he slid out of the chair and hit his left side on the chair. States that he was not complaining of any pain initially but when they got him back into bed is when he started complaining of pain. He is on aspirin daily. She does state that he bumped the side of his head against the chair yesterday. States that the shaking episodes are not uncommon and he follows with a neurologist here in [place] and at [facility]. Patient tested positive for COVID 6 days ago. states that he has been very weak since his COVID diagnosis and has been essentially bedbound secondary to weakness. Reports that he is normally very active and gets up at the same time every day and feeds the cat and is active with other activities throughout the day. However, in the last 6 days the patient has been too weak and tired to get out of bed. States that he has been laying around in bed for the last 3 days unable to get out of bed. She had to buy a urinal at the store in order for the patient to be able to go to the bathroom because he is too weak to do up to get out of bed. ROS: as above PHYSICAL EXAM: Constitutional: Patient appears in no acute distress. HENT: Head: Normocephalic and atraumatic. Eyes: EOMI, PERRL Mouth/Throat: Mucous membranes moist. Neck: Trachea midline. Neck supple. Cardiovascular: Tachycardic with regular rhythm. No murmurs, rubs or gallops. Intact distal pulses. Pulmonary/Chest: No respiratory distress. Breath sounds clear and equal bilaterally. No wheezes or rales. Left lateral chest wall tenderness to palpation. No obvious ecchymosis or flail chest. Abdominal: Abdomen soft, no tenderness, rebound or guarding. Musculoskeletal: No edema, tenderness or deformity noted. Skin: Warm and dry. No rash, erythema, pallor or cyanosis Psychiatric: Appropriate mood and affect for situation. Neurological: Alert and keenly responsive. CN II-XII grossly intact, moving all extremities equally and fully. MDM: - Vitals signs showed hypertension. - History obtained via patient and EMS, given patient's dementia. Patient presents with left lateral rib pain. states that the patient slid out of his shower chair yesterday and hit the left side of his chest and has been complaining of pain ever since. Patient tested positive for COVID 6 days ago. reports patient has had progressively worsening weakness over the last week. States that he has been laying around in bed for the last 3 days unable to get out of bed. She had to buy a urinal at the store in order for the patient to be able to go to the bathroom because he is too weak to do up to get out of bed. - Chronic conditions affecting care: dementia; caitlyn cell carcinoma - Differential diagnoses include, but are not limited to: Acute coronary syndrome; pulmonary embolism; dissection; tension pneumothorax; pneumonia; rib fractures - Order placed for continuous cardiac monitoring. At this time, monitor showed rate of 103 bpm with normal sinus rhythm, per my interpretation. - External medical records reviewed. EMS run sheet reviewed. Patient vitally stable in route. No meds given prehospital. - EKG reviewed by myself showed normal sinus rhythm. Rate 98 bpm. QTc 500. Noted to have a right bundle branch block. No acute ischemic changes. - Laboratory workup interpreted by myself showed normal WBC; stable electrolytes; normal troponin - CXR negative for pneumonia, per my interpretation - CT head wo contrast negative for acute pathology - CT chest wo contrast showed acute nondisplaced 10th lateral rib fracture. - Patient is tremulous on examination and is concerned about his weakness. I asked the patient to see if he could get up out of bed he could ambulate him, but he took him 5 minutes and he was very profoundly weak and getting upright to the side of the bed. expresses concern that he would not be able to get around at home and she would not be able to take care of him like this. - Discussed case with foster care social worker about need for admission - Discussed case with hospitalist - Patient admitted to [facility] service for further evaluation and management. ASSESSMENT AND PLAN: Diagnosis: generalized weakness; left 10th rib fracture; COVID Plan: admit Past Med/Surg History Social History Smoking Status: Never smoker Preferred Language: Citizen Of [place] Hr Specialist Required: No Beliefs That Will Affect Care: None Feels Safe at Home: Yes Allergies Allergies Allergy/AdvReac Type Severity Reaction Status Date / Time No Known Allergies Allergy Unverified 06/09/16 08:07 Home Meds Home Medications Medication Instructions Recorded Confirmed Infliximab (Remicade) 100 mg IV Q8WK ##0 03/12/16 05/04/21 Multiple Vitamins W/ Minerals 1 tab PO DAILY ##0 03/12/16 05/04/21 (Multivitamin Men) ATORVASTATIN (LIPITOR) 10 PO DAILY #0 tabs 06/09/16 Previous Rx's Medication Instructions Recorded Aspirin (Aspirin EC Low Dose) 81 mg PO DAILY 30 days #30 Tabs 05/05/16 Results & Data (ED) Vital Signs Vital Signs - 24 hr 04/27/23 08:55 04/27/23 08:56 04/27/23 11:15 Temperature 36.8 C Temperature Source Temporal Artery Scan Pulse Rate 101 H 112 H Pulse Rate [Right Apical] 76 Respiratory Rate 19 20 Respiratory Effort / Characteristics Non-Labored Non-Labored Respiratory Depth Normal Blood Pressure 136/107 H Blood Pressure Mean 116 Pulse Oximetry 95 97 Oxygen Delivery Method Room Air Room Air Sepsis Recent Fever Within 48 Hours No Sepsis New/Unexplained Change in Mental Status No Sepsis Action Taken by Nursing No Action Required Laboratory Data 04/27/23 09:20 04/27/23 09:20 Lab Results 04/27/23 04/27/23 Range/Units 09:20 09:20 WBC 4.82 (4.8-10.8) K/ul RBC 5.16 (4.70-6.10) M/uL Hgb 16.4 (14.0-18.0) g/dl Hct 47.9 (42.0-52.0) % MCV 92.8 (80.0-100.0) fL MCH 31.8 (25.0-34.0) pg MCHC 34.2 (32.0-36.0) g/dL RDW Std Deviation 40.3 (36.4-46.3) fL RDW Coeff of Srinivasa 11.7 (11.5-14.5) % Plt Count 160 (130-400) K/uL MPV 10.1 (9.4-12.4) fL Immature Gran % (Auto) 0.2 % Neut % (Auto) 50.6 % Lymph % (Auto) 38.4 % Clark % (Auto) 9.8 % Eos % (Auto) 0.6 % Baso % (Auto) 0.4 % Neut # (Auto) 2.44 (1.40-6.50) K/uL Lymph # (Auto) 1.85 (1.20-3.40) K/uL Clark # (Auto) 0.47 (0.11-0.59) K/uL Eos # (Auto) 0.03 (0.00-0.50) K/uL Baso # (Auto) 0.02 (0.00-0.20) K/uL Immature Gran # (Auto) 0.01 (0.01-0.20) K/uL PT 10.8 (9.0-12.0) Seconds INR 1.0 (0.9-1.1) Sodium 138 (136-145) mmol/L Potassium 3.9 (3.5-5.1) mmol/L Chloride 106 (98-107) mmol/L Carbon Dioxide 24 (21-32) mmol/L Anion Gap 8 (3-11) BUN 12 (6-23) mg/dl Creatinine 0.89 (0.6-1.4) mg/dl Est Cr Clr Drug Dosing 84.6 ml/min Est GFR ( Amer) 101.8 ml/min Est GFR (Non-Af Amer) 87.9 ml/min BUN/Creatinine Ratio 13.5 (10-20) Glucose 120 H (70-99(Fasting)) mg/dl Calcium 9.1 (8.6-10.3) mg/dl Total Bilirubin 0.8 (0.2-1.0) mg/dl AST 19 (13-39) U/L ALT 23 (7-52) U/L Alkaline Phosphatase 123 H (34-104) U/L Troponin I High Sens 3.8 Cancelled (0-20) pg/ml Total Protein 7.7 (6.0-8.3) gm/dl Albumin 4.0 (3.4-5.0) gm/dl Globulin 3.7 (2.5-4.0) gm/dl Albumin/Globulin Ratio 1.1 (0.9-2) Administered Medications Sodium Chloride (Nss) 1,000 mls @ 999 mls/hr IV .Q1H1M ONE Stop: 04/27/23 12:50 Last Admin: 04/27/23 12:01 Dose: 999 mls/hr [place]ed [place] [facility] [place] Radiologist's Impression: Chest X-Ray 04/27/23 08:49 SINGLE VIEW CHEST CLINICAL HISTORY: Fall. Dyspnea. Covid. FINDINGS: An AP, portable, upright chest radiograph is compared to study dated 04/21/2023. The cardiomediastinal silhouette is top normal for projection. Chronic interstitial thickening similar to previous. There is bibasilar scarring/atelectasis. No airspace consolidation or large pleural effusion is identified. No pneumothorax is seen. There are chronic/healed right-sided rib fractures. IMPRESSION: No acute cardiopulmonary abnormality is identified. ACT 112: Negative or not required by law. Electronically signed by: Greg Castillo M.D. 04/27/2023 9:[address] 04/27/23 09:12 CT OF THE CHEST WITHOUT IV CONTRAST CLINICAL HISTORY: Left lateral chest wall pain s/p fall. COMPARISON STUDY: Chest radiograph performed earlier today. CT DOSE: 1349.85 mGy.cm TECHNIQUE: Axial images of the chest were obtained without IV contrast. Images were reviewed in the axial, sagittal, and coronal planes. IV contrast was not administered for this examination. Automated exposure control was utilized for the study. A dose lowering technique was utilized adhering to the principles of ALARA. FINDINGS: The thoracic aorta is suboptimally assessed on this unenhanced exam. However, there is no mediastinal hematoma. The heart is mildly enlarged. There is no pericardial effusion. There is no mediastinal or hilar lymphadenopathy. No pneumothorax or pleural effusion is present. Subpleural densities within the lower lobes represent atelectasis. There is an acute nondisplaced fracture of the posterolateral left 10th rib. Note is made of a 5.4 x 3.9 cm water attenuation density within the right axilla with adjacent stranding. There is no soft tissue gas. IMPRESSION: 1. Acute nondisplaced fracture the posterior lateral left 10th rib. No pneumothorax. 2. 5.4 x 3.9 cm water attenuation density within the right axilla with adjacent stranding. Although nonspecific, this favors postsurgical change such as a seroma. Correlation with surgical history is recommended. ACT 112: Negative or not required by law. Electronically signed by: Alireza Allen M.D. 04/27/2023 10:[address] 04/27/23 09:12 CT SCAN OF THE BRAIN WITHOUT IV CONTRAST CLINICAL HISTORY: Fall. COMPARISON STUDY: MRI of the brain dated 05/04/2016. TECHNIQUE: Unenhanced axial CT scan of the brain is performed from the vertex to the skull base. A dose lowering technique was utilized adhering to the principles of ALARA. FINDINGS: Brain parenchyma: There is age-related involutional change noting mild subcortical and periventricular microangiopathic disease. There is no hemorrhage, mass effect, or evidence of acute territorial ischemia by CT criteria. Tavares-white matter differentiation is preserved. No extra-axial fluid collection is seen. Ventricles, sulci, cisterns: Prominent secondary to involutional change. Intracranial vasculature: There is mild atherosclerotic calcification of the cavernous carotid arteries. Calvarium: The skeletal structures are osteopenic. No depressed calvarial fracture is seen. Sinuses and mastoids: There is mild mucosal thickening within the right maxillary antrum. Trace mucosal thickening is seen in the ethmoid sinuses. There is a large left mastoid effusion. The right mastoid air cells are well pneumatized. Orbits: The bony orbits are grossly intact. IMPRESSION: 1. There is no hemorrhage, mass effect, or evidence of acute territorial ischemia by CT criteria. 2. Left mastoid effusion. ACT 112: Negative or not required by law. Electronically signed by: Greg Castillo M.D. 04/27/2023 10:11 AM Discharge Plan Visit Data Chief Complaint: Chest/Rib Injury Stated Complaint: FELL YESTERDAY, L RIB PAIN, +CREPITUS, COVID ED Provider: Yaquelin Sampson Discharge Problem: Generalized weakness, COVID-19, Left rib fracture Forms Stand Alone Forms: My [facility] Prescriptions Prescriptions: No Action Infliximab (Remicade) 100 MG/10 ML INJECTION 100 mg IV Q8WK Qty: 0 Multiple Vitamins W/ Minerals (Multivitamin Men) 1 TAB tablet 1 tab PO DAILY Qty: 0 Aspirin (Aspirin EC Low Dose) 81 MG ENTERIC COATED TAB 81 mg PO DAILY 30 Days Qty: 30 4RF ATORVASTATIN (LIPITOR) 10 MG tablet 10 PO DAILY Qty: 0 Referrals Referrals: Valentina Jay DO [Primary Care Provider] -
--- NOTE | 2023-04-27 09:31 | XRay Report ---
SINGLE VIEW CHEST CLINICAL HISTORY: Fall. Dyspnea. Covid. FINDINGS: An AP, portable, upright chest radiograph is compared to study dated 04/21/2023. The cardiom ediastinal silhouette is top normal for projection. Chronic interstitial thickening similar to previo us. There is bibasilar scarring/atelectasis. No airspace consolidation or large pleural effusion is i dentified. No pneumothorax is seen. There are chronic/healed right-sided rib fractures. IMPRESSION: No acute cardiopulmonary abnormality is identified. ACT 112: Negative or not required by law. Electronically signed by: Greg Castillo M.D. 04/27/2023 9:29 AM
[2023-04-27 09:39] LABS: Basophils # (auto) 0.02 K/uL (0.00-0.20); Basophils % (auto) 0.4 %; Eosinophils # (auto) 0.03 K/uL (0.00-0.50); Eosinophils % (auto) 0.6 %; Hematocrit (blood only) 47.9 % (42.0-52.0); Hemoglobin 16.4 g/dl (14.0-18.0); Immature Granulocytes # (auto) 0.01 K/uL (0.01-0.20); Immature Granulocytes % (auto) 0.2 %; Lymphocytes # (auto) 1.85 K/uL (1.20-3.40); Lymphocytes % (auto) 38.4 %; Mean Corpuscular Hemoglobin 31.8 pg (25.0-34.0); Mean Corpuscular Hgb Conc 34.2 g/dL (32.0-36.0); Mean Corpuscular Volume 92.8 fL (80.0-100.0); Mean Platelet Volume 10.1 fL (9.4-12.4); Monocytes # (auto) 0.47 K/uL (0.11-0.59); Monocytes % (auto) 9.8 %; Neutrophils # (auto) 2.44 K/uL (1.40-6.50); Neutrophils % (auto) 50.6 %; Platelet Count 160 K/uL (130-400); RDW Coefficient of Variation 11.7 % (11.5-14.5); RDW Standard Deviation 40.3 fL (36.4-46.3); Red Blood Count 5.16 M/uL (4.70-6.10); White Blood Count 4.82 K/ul (4.8-10.8)
[2023-04-27 09:53] LABS: Albumin Globulin Ratio 1.1 (0.9-2); BUN Creatinine Ratio 13.5 (10-20); Bilirubin,Total 0.8 mg/dl (0.2-1.0); Calcium 9.1 mg/dl (8.6-10.3); Creatinine Clr Calc Pharmacy 84.6 ml/min; Est GFR (African American) 101.8 ml/min; Est GFR (Non-African American) 87.9 ml/min; Globulin 3.7 gm/dl (2.5-4.0); Potassium 3.9 mmol/L (3.5-5.1); Total Protein 7.7 gm/dl (6.0-8.3)
[2023-04-27 09:59] LABS: Troponin I High Sensitivity 3.8 pg/ml (0-20)
[2023-04-27 10:02] LABS: Prothrombin Time 10.8 Seconds (9.0-12.0)
--- NOTE | 2023-04-27 10:12 | CT Scan Report ---
CT SCAN OF THE BRAIN WITHOUT IV CONTRAST CLINICAL HISTORY: Fall. COMPARISON STUDY: MRI of the brain dated 05/04/2016. TECHNIQUE: Unenhanced axial CT scan of the brain is performed from the vertex to the skull base. A do se lowering technique was utilized adhering to the principles of ALARA. FINDINGS: Brain parenchyma: There is age-related involutional change noting mild subcortical and periventricula r microangiopathic disease. There is no hemorrhage, mass effect, or evidence of acute territorial isc hemia by CT criteria. Tavares-white matter differentiation is preserved. No extra-axial fluid collection is seen. Ventricles, sulci, cisterns: Prominent secondary to involutional change. Intracranial vasculature: There is mild atherosclerotic calcification of the cavernous carotid arteri es. Calvarium: The skeletal structures are osteopenic. No depressed calvarial fracture is seen. Sinuses and mastoids: There is mild mucosal thickening within the right maxillary antrum. Trace mucos al thickening is seen in the ethmoid sinuses. There is a large left mastoid effusion. The right masto id air cells are well pneumatized. Orbits: The bony orbits are grossly intact. IMPRESSION: 1. There is no hemorrhage, mass effect, or evidence of acute territorial ischemia by CT criteria. 2. Left mastoid effusion. ACT 112: Negative or not required by law. Electronically signed by: Greg Castillo M.D. 04/27/2023 10:11 AM
--- NOTE | 2023-04-27 10:31 | CT Scan Report ---
CT OF THE CHEST WITHOUT IV CONTRAST CLINICAL HISTORY: Left lateral chest wall pain s/p fall. COMPARISON STUDY: Chest radiograph performed earlier today. CT DOSE: 1349.85 mGy.cm TECHNIQUE: Axial images of the chest were obtained without IV contrast. Images were reviewed in the axial, sagittal, and coronal planes. IV contrast was not administered for this examination. Automat ed exposure control was utilized for the study. A dose lowering technique was utilized adhering to t he principles of ALARA. FINDINGS: The thoracic aorta is suboptimally assessed on this unenhanced exam. However, there is no mediastinal hematoma. The heart is mildly enlarged. There is no pericardial effusion. There is no med iastinal or hilar lymphadenopathy. No pneumothorax or pleural effusion is present. Subpleural densiti es within the lower lobes represent atelectasis. There is an acute nondisplaced fracture of the poste rolateral left 10th rib. Note is made of a 5.4 x 3.9 cm water attenuation density within the right ax illa with adjacent stranding. There is no soft tissue gas. IMPRESSION: 1. Acute nondisplaced fracture the posterior lateral left 10th rib. No pneumothorax. 2. 5.4 x 3.9 cm water attenuation density within the right axilla with adjacent stranding. Although n onspecific, this favors postsurgical change such as a seroma. Correlation with surgical history is re commended. ACT 112: Negative or not required by law. Electronically signed by: Alireza Allen M.D. 04/27/2023 10:30 AM
[2023-04-27] MEDS ORDERED: SODIUM CHLORIDE 0.9% 1,000 ML IV ONE (11:50)
--- NOTE | 2023-04-27 12:03 | History & Physical Report ---
Date of Service April 27, 2023 History of Present Illness Primary Care Provider: Valentina Jay DO Allergies Allergy/AdvReac Type Severity Reaction Status Date / Time No Known Allergies Allergy Unverified 06/09/16 08:07 Home Medications Medication Instructions Recorded Confirmed Type Infliximab (Remicade) 100 mg IV Q8WK ##0 03/12/16 05/04/21 History Multiple Vitamins W/ Minerals 1 tab PO DAILY ##0 03/12/16 05/04/21 History (Multivitamin Men) Aspirin (Aspirin EC Low Dose) 81 mg PO DAILY 30 days #30 Tabs 05/05/16 05/04/21 Rx ATORVASTATIN (LIPITOR) 10 PO DAILY #0 tabs 06/09/16 History Past Med/Surg History Social History Smoking Status: Never smoker Preferred Language: 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
[2023-04-27] MEDS ORDERED: MAGNESIUM HYDROXIDE SUSP 30 ML UDC PO PRN (12:16)
[2023-04-27] MEDS ORDERED: ONDANSETRON INJ 2 MG/ML 2 ML VIAL IV PRN (12:16)
[2023-04-27] MEDS ORDERED: POLYETHYLENE (MIRALAX) 17 GM PACK PO PRN (12:16)
[2023-04-27] MEDS ORDERED: ALUMINUM/MAGNESIUM SUSP 30 ML UDC PO PRN (12:16)
[2023-04-27] MEDS ORDERED: ACETAMINOPHEN 325 MG TAB PO PRN (12:16)
--- OUTSIDE RECORDS SUMMARY | 2023-04-27 12:19 | External Medical Summary | Summary of Care ---
Author Name Unknown Organization [facility] Address [address] [place] [address] Phone [phone] Care Team Providers Care Computer Hardware Engineer Name Role Phone Valentina Jay DO Primary Care Provider [phone] Encounter Details Date Type Department Care Team (Late st Contact Info) Description 04/19/2023 11:00 AM EST Nurse Only General Surgery, [place] [address] [place] [address] Luz Maria Evans, RN [address] [place] [address] Allergies No known active allergiesdocumented as of this encounter (statuses as of 04/26/2023) Medications Medication Sig Dispensed Refills Start Date End Date Status NSS 0.9% SOLN 250 mL with inFLIXimab 100 MG SOLR Administer intravenously once. 0 Active hydrocortisone 2.5%-clotrimazole 1% 1:1 Apply to corners of the lips twice daily as needed for flares. 15 g 0 11/27/2017 Active nystatin 163575 UNIT/GM creamIndications:Cu taneous candidiasis Apply to rash in the groin twice daily x 2 weeks. 30 g 0 07/17/2019 Active Aspirin 81 MG Tablet Take 1 Tablet by mouth in the morning. 0 Active hydrocortisone 2.5 % Administer into the rectum 2 times a day. 2.5 g 1 10/07/2019 Active Additional Information Patient not taking.Reported on 04/25/2023 Multi-Vitamins Oral Tablet Take 1 Tablet by mouth in the morning. 0 Active Triamcinolone Acetonide 0.1 % External Cream (Aristocort)Indicat ions:Nummular dermatitis Apply to rash on the arms, back, and legs twice daily x 1-2 weeks. 454 g 3 09/11/2020 Active Donepezil HCl 10 MG Oral Tablet (Aricept) Take 1.5 tablets with breakfast for 14 days, then 2 tablets with breakfast daily thereafter. 180 Tablet 3 09/16/2022 Active inFLIXimab 100 MG Intravenous Solution Reconstituted (Remicade) 5mg/kg every 8 weeks IV. 5 Each 9 09/26/2022 Active Additional Information Patient not taking.Reported on 04/25/2023 Omeprazole 20 MG Oral Capsule Delayed Release (PriLOSEC) TAKE 1 CAPSULE DAILY 90 Capsule 1 12/15/2022 Active Memantine HCl ER 28 MG Oral Capsule Extended Release 24 Hour (Namenda XR) Take 1 Capsule by mouth in the morning. Take with largest meal of the day.. 90 Capsule 3 01/13/2023 Active Atorvastatin Calcium 80 MG Oral Tablet (Lipitor)Indication s:Dyslipidemia, goal LDL below 130 Take 1 Tablet by mouth in the morning. In the morning.. 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 24 Packet 3 02/28/2023 Active Sildenafil Citrate 20 MG Oral Tablet (Revatio)Indication s:Erectile dysfunction, unspecified erectile dysfunction type Take 1 Tablet by mouth in the morning and 1 Tablet at noon and 1 Tablet before bedtime. 90 Tablet 5 02/28/2023 Active oxyCODONE HCl 5 MG Oral Tablet (Oxy IR) Take 1 Tablet by mouth every 6 hours as needed for Pain, Severe. 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 Crohn's disease of colon 11/17/2014 documented as of this encounter (statuses as of 04/26/2023) Resolved Problems Problem Noted Date Diagnosed Date Resolved Date Prediabetes 10/31/2017 06/08/2018 Overview: Per Prediabetes protocol #1 documented as of this encounter (statuses as of 04/26/2023) Immunizations Name Administration Dates Next Due COVID-19 mRNA, LNP-s, No Pre serve, 2-Dose Series (D-Sight) 01/28/2021,07/30/2020,07/04/2020 COVID-19, LNP-s, No Preserve , Bello-sucrose, Ages 12+ (Pfizer) 09/08/2021 Covid-19, Mrna, Lnp-s, Pf, B ivalent, 30 Mcg, IM, 12 yrs and above (Pfizer) 03/02/2022 Hepatitis B, 20+ yrs 05/13/2019,12/14/2018,11/13 PPD 10/09/2014 Pneumococcal Conjugate Vacc, 13 Valent (Prevnar) 04/06/2017 Pneumococcal Conjugate Vacci ne, 20-valent ([id number]) 02/28/2023 Pneumococcal Polysaccharide PPV23 (Pneumovax) 10/06/2017 Season Influenza, Quad, PF, Adjuvanted, 65+ Yrs, IM (FLUAD) 01/31/2020 Seasonal Influenza, Quadriva lent Hd (Fluzone Hd) 02/28/2023,03/02/2022 Seasonal Influenza, Quadriva lent Hd, 65+ Yrs 01/31/2020 Seasonal Influenza, Quadriva lent, No Preserve, IM 03/20/2019,03/01/2018,03/07/2017,03/01 Seasonal Influenza, Quadriva lent, No Preserve, Mdck 03/07/2017 TDAP (age 10 and older)(Boostrix) 01/10/2020, Zoster Vaccine Recombinant (Shingrix) 04/05/2019 ,10/12/2018 documented as of this encounter Social History Tobacco Use Types Packs/Day Years Used Date Smoking Tobacco: Never Smokeless Tobacco: Never Alcohol Use Standard Drinks/Week Comments No 0 (1 standard drink = 0.6 oz pur e alcohol) PHQ-2 Answer Date Recorded PHQ Adult Total Score 0 10/19/2022 Hunger Vital Sign Answer Date Recorded Within the past 12 months, y ou worried that your food would run out before you got the money to buy more. Never true 05/19/20 22 Within the past 12 months, t he food you bought just didn't last and you didn't have money to get more. Never true 05/19/2022 Sex and Gender Information Value Date Recorded Sex Assigned at Male 12/31/2021 8:09 AM EDT Gender Identity Male 12/31/2021 8:09 AM EDT Sexual Orientation Straight 12/31/2021 8: 09 AM EDT Job Start Date Occupation Industry Not on file Not on file Not on file documented as of this encounter Progress Notes * Luz Maria Evans RN - 04/26/2023 3:10 PM EST Seen by Dr Laguerre for bleeding at right thigh donor site. documented in this encounter Plan of Treatment Upcoming Encounters Date Type Department Care Team (Late st Contact Info) Description 06/09/2023 9:00 AM EST Scheduled Telephone Palliative Medicine, [address] 5th [place] [address] [place], Nurse Palliative Medicine [address] [address] 07/14/2023 2:00 PM EST Office Visit [facility] [address] [place] [address] Jose Matute, DO [address] [place] [address] 10/09/2023 8:40 AM EDT Office Visit [facility] [address] [place] [address] Enrike Miller MD [address] [facility] [place] [address] Health Maintenance Due Date Last Done Comments COLONOSCOPY-EVERY 2 YRS AGES 18-100 03/26/2020 03/26/2018, 03/26/2018, 11/14/2014, Additional history exists COVID-19 Vaccine ( season) 2023 03/02/2022, 09/08/2021, 01/28/2021, Additional history exists Depression Screening 10/20/2023 10/19/2022 Diabetes Screening 04/06/2026 04/06/2023, 1 , 02/21/2023, Additional history exists Lipid Panel 05/30/2027 05/30/2022, 12/21, 01/01/2021, Additional history exists DTaP,Tdap,and Td Vaccines (3 - Td or Tdap) 01/09/2030 01/10/2020, 11/16/2009 Zoster Vaccines Completed 04/05/2019, 10/12/2018 Hepatitis B Completed 05/13/2019, 11/20, 11/13/2018 Influenza Vaccine (FLU shot) Completed 02/2023, 03/02/2022, 02/17/2021, Additional history exists Pneumococcal Vaccine: 65+ Years Completed 02/28/2023, 10/06/2017, 04/06/2017 GARDASIL-HPV IMMUNIZATION SERIES Aged Out No longer eligible based on patient's age to complete this topic MENINGOCOCCAL (MENACTRA/MENVEO) Aged Out No longer eligible based on patient's age to complete this topic documented as of this encounter Medical Devices Not on filedocumented as of this encounter Visit Diagnoses Diagnosis Post-operative state- Primary Other postprocedural status documented in this encounter Advance Directives Latest Code Status on File Code Status Date Activated Date Inactivated Comments Full Code 04/18/2023 6:51 AM 04/18/2023 4:10 PM Thi s order reflects the patients wishes and were consensually agreed upon. Question Answer Comments Discussion of Advance Directives occurred with: Not Discussed due to patient's condition Care Teams Computer Hardware Engineer Relationship Specialty Start Date End Date Valentina Jay DO [address] [address] PCP - General Family Medicine 03/15/16 documented as of this encounter
--- OUTSIDE RECORDS SUMMARY | 2023-04-27 12:20 | External Medical Summary | Summary of Care ---
Author Name Unknown Organization [facility] Address [address] [place] [address] Phone [phone] Care Team Providers Care Supervisor Pumping Name Role Phone Valentina Jay DO Primary Care Provider [phone] Reason for Referral * Evaluate & Treat - Unlimited Visits (Within 10 days (routine)) - Authorized Specialty Diagnoses / Procedures Referred By Contac t Referred To Contact Hematology/Oncology / Hematology Oncology Diagnoses Cassie cell carcinoma (HCC) Joshua Mayes MD [address] [place] [address] Referral ID Status Reason Start Date Expiration Date Visits Requested Visits Authorized [id number] Authorized Specialty Services Required 04/25/[phone] Question Answer Referral Priority Within 10 days (routine) Where should this appointment be scheduled? External - [place] [facility] Reason for Referral Other - Please Comment - Oilton cell * Evaluate & Treat - Unlimited Visits (Within 10 days (routine)) - Authorized Specialty Diagnoses / Procedures Referred By Contac t Referred To Contact Radiation Oncology Diagnoses Oilton cell carcinoma (HCC) Joshua Mayes MD [address] [place] [address] Referral ID Status Reason Start Date Expiration Date Visits Requested Visits Authorized [id number] Authorized Specialty Services Required 04/25/[phone] Question Answer Referral Priority Within 10 days (routine) Where should this appointment be scheduled? External - [place] What is the preferred location to have this test performed? Non-[facility] Site Reason for Visit * Reason Comments Post-Op Encounter Details Date Type Department Care Team (Late st Contact Info) Description 04/25/2023 10:00 AM EST Office Visit General Surgery, [place] [address] [place] [address] Joshua Mayes MD [address] [place] [address] Oilton cell carcinoma (HCC)* Allergies No known active allergiesdocumented as of this encounter (statuses as of 04/25/2023) Medications Medication Sig Dispensed Refills Start Date End Date Status NSS 0.9% SOLN 250 mL with inFLIXimab 100 MG SOLR Administer intravenously once. 0 Active hydrocortisone 2.5%-clotrimazole 1% 1:1 Apply to corners of the lips twice daily as needed for flares. 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 Crohn's disease of colon 11/17/2014 documented as of this encounter (statuses as of 04/25/2023) Resolved Problems Problem Noted Date Diagnosed Date Resolved Date Prediabetes 10/31/2017 06/08/2018 Overview: Per Prediabetes protocol #1 documented as of this encounter (statuses as of 04/25/2023) Immunizations Name Administration Dates Next Due COVID-19 mRNA, LNP-s, No Pre serve, 2-Dose Series ([employer]) 01/28/2021,07/30/2020,07/04/2020 COVID-19, LNP-s, No Preserve , Bello-sucrose, Ages 12+ ([employer]) 09/08/2021 Covid-19, Mrna, Lnp-s, Pf, B ivalent, 30 Mcg, IM, 12 yrs and above (Pfizer) 03/02/2022 Hepatitis B, 20+ yrs 05/13/2019,12/14/2018,11/13 PPD 10/09/2014 Pneumococcal Conjugate Vacc, 13 Valent (Prevnar) 04/06/2017 Pneumococcal Conjugate Vacci ne, 20-valent ([id number]) 02/28/2023 Pneumococcal Polysaccharide PPV23 (Pneumovax) 10/06/2017 Season [...] on file documented as of this encounter Last Filed Vital Signs Vital Sign Reading Time Taken Comments Blood Pressure 130/84 04/25/2023 10:02 AM EST Pulse 95 04/25/2023 10:02 AM EST Temperature 36.8 C (98.3 F) 04/25/2023 10:[address] Respiratory Rate 18 04/25/2023 10:02 AM EST Oxygen Saturation - - Inhaled Oxygen Concentration - - Weight - - Height - - Body Mass Index - - documented in this encounter Patient Instructions * Patient Instructions* Luz Maria Evans RN - 04/25/2023 9:53 AM EST Right wrist and right thigh - clean areas daily with soap and water. No scrubbing. Pat area dry. - avoid soaking area in tubs/swimming pools/etc - avoid excessively hot water - can be left uncovered and open to air - keep area moist (with petroleum jelly) - can cover if needed with clean gauze and tape/wrap for bleeding - avoid strenuous use of right wrist but we do want you to move it to prevent stiffness - can use half strength peroxide to clean around edges for any buildup We are sending referrals to [facility] for you to meet with a radiation oncologist and a hematology oncology doctor. You can resume driving when you can freely move your right leg and fully depress the brake pedal without pain. documented in this encounter Progress Notes * Joshua Mayes MD - 04/25/2023 12:59 PM EST SURGICAL / BREAST ONCOLOGY [place]IN[place] [address] DATE: 04/25/2023 PROCEDURE: WLE and [place] node biopsy 04/18/2023 : [id number] cassie cell cancer A. 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 Skin, right forearm, excision: Cassie cell carcinoma C. Right forearm deep margin, biopsy: No evidence of malignancy Doing ok post op. Some bleeding from donor site and had covid postop General ROS: no fever or chills Pain is as expected OE: BP 130/84 | Pulse 95 | Temp 36.8 C (98.3 F) (Infrared ) | Resp 18 GENERAL: aao INCISION(S): well healed. Skin graft is well healed Donor site is C/D/I IMPRESSION / PLAN: S/P wide excision and sentinel node - 1/2 nodes positive for cassie cell cancer - plan for discussion with rad onc- based on discussion rad onc for nodes versus ax dissection Joshua Mayes MD air chipper Section Head, Surgical Oncology and Endocrine Surgery [facility] [address] [place] [address] Office: [phone] [email or web address] documented in this encounter Plan of Treatment Upcoming Encounters Date Type Department Care Team (Late st Contact Info) Description 06/09/2023 9:00 AM EST Scheduled Telephone Palliative Medicine, [address] 5th [place] [address] [place], Nurse Palliative Medicine [address] [address] 07/14/2023 2:00 PM EST Office Visit Neurology [place] [address] [facility] [address] [address] Jose Matute, DO [address] [place] [address] 10/09/2023 8:40 AM EDT Office Visit Neurology [facility] [place] [facility] [place] [address] Enrike Miller MD 200 [facility] [address] [place] [address] Scheduled Referrals Name Type Priority Associated Diagnoses Orde r Schedule RADIATION/ONCOLOGY REFERRAL OP Referral Within 10 days (routine) Cassie cell carcinoma (HCC) Ordered: 04/25/2023 HEMATOLOGY/ONCOLOGY REFERRAL OP Referral Within 10 days (routine) Oilton cell carcinoma (HCC) Ordered: 04/25/2023 Health Maintenance Due Date Last Done Comments [...] as of this encounter Visit Diagnoses Diagnosis 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 Question Answer Comments Discussion of Advance Directives occurred with: Not Discussed due to patient's condition Care Teams Supervisor Pumping Relationship Specialty Start Date End Date Valentina Jay DO [address] [place] [address] PCP - General Family Medicine 03/15/16 documented as of this encounter"
--- OUTSIDE RECORDS SUMMARY | 2023-04-27 12:20 | External Medical Summary | Summary of Care ---
Author Name Unknown Organization [facility] Address [address] [place] [address] Phone [phone] Care Team Providers Care Commercial Lines Account Assistant Name Role Phone Valentina Jay DO Primary Care Provider [phone] Encounter Details Date Type Department Care Team (Late st Contact Info) Description 04/19/2023 8:30 AM EST Nurse Only General Surgery, [place] [address] [place] [address] Luz Maria Evans, RN [address] [place] [address] Allergies No known active allergiesdocumented as of this encounter (statuses as of 04/26/2023) Medications Medication Sig Dispensed Refills Start Date End Date Status NSS 0.9% SOLN 250 mL with inFLIXimab 100 MG SOLR Administer intravenously once. 0 Active hydrocortisone 2.5%-clotrimazole 1% 1:1 Apply to corners of the lips twice daily as needed for flares. 15 g 0 11/27/2017 Active nystatin 919282 UNIT/GM creamIndications:Cu taneous candidiasis Apply to rash [...] mRNA, LNP-s, No Pre serve, 2-Dose Series ([employer]) 01/28/2021,07/30/2020,07/04/2020 COVID-19, LNP-s, No Preserve , Bello-sucrose, Ages 12+ (Pfizer) 09/08/2021 Covid-19, Mrna, Lnp-s, Pf, B ivalent, 30 Mcg, IM, 12 yrs and above (Pfizer) 03/02/2022 Hepatitis B, 20+ yrs 05/13/2019,12/14/2018,11/13 PPD 10/09/2014 Pneumococcal Conjugate Vacc, 13 Valent (Prevnar) 04/06/2017 Pneumococcal Conjugate Vacci ne, 20-valent ([id number]) 02/28/2023 Pneumococcal Polysaccharide PPV23 (Pneumovax) 10/06/2017 Season [...] as of this encounter Progress Notes * Shade Rooseveltrené Sanchez, - 04/19/2023 8:53 AM EST Resident Note: Patient was seen in clinic to have his outer dressing on his R wrist changed. He reports he was bleeding through the dressing yesterday which prompted him to go to the ED. However, he waited there for a long time and decided to leave and see us in clinic this morning to get the dressing changed. The Coban dressing was moderately saturated with blood and this was removed. The bolster on top of the graft was in place with papo. The area was found to be hemostatic. The bolster was untouched and not moved at all. A 4x4 dressing was placed over the bolster. Then Coban was wrapped snugly overthe R wrist. Patient tolerated the dressing change without significant issues. Denied numbness or ti ngling in the arms after the dressing was placed. Patient examined and discussed w/ Dr. Sugey Laguerre DO PGY-2, General Surgery 04/19/2023 8:57 AM documented in this encounter Plan of Treatment Upcoming Encounters Date Type Department Care Team (Late st Contact Info) Description 06/09/2023 9:00 AM EST Scheduled Telephone Palliative Medicine, [address] [place] [address] [place], Nurse Palliative Medicine [facility] 5th [address] [facility] [place] [address] 07/14/2023 2:00 PM EST Office Visit Neurology [facility] [address] [facility] [place] [address] Jose Matute, DO [address] [place] [address] 10/09/2023 8:40 AM EDT Office Visit Neurology [facility] [place] [address] [facility] [place] [address] Enrike Miller MD 200 [facility] [place] [address] Health Maintenance Due Date Last Done Comments [...] Discussed due to patient's condition Care Teams Commercial Lines Account Assistant Relationship Specialty Start Date End Date Valentina Jay DO [address] [address] PCP - General Family Medicine 03/15/16 documented as of this encounter
--- OUTSIDE RECORDS SUMMARY | 2023-04-27 12:20 | External Medical Summary | Summary of Care ---
Author Name Unknown Organization [facility] Address [address] [place] [address] Phone [phone] Care Team Providers Care Plastic Battery Assembler Name Role Phone Valentina Jay DO Primary Care Provider [phone] Reason for Visit * Reason Onset Date Comments Nurse Telephone Follow Up 04/20/2023 Encounter Details Date Type Department Care Team (Late st Contact Info) Description 04/20/2023 Telephone General Surgery, [facility] [address], [place] [id number] Joshua Mayes MD [address], [place] [id number] Nurse Telephone Follow Up Allergies No known active allergiesdocumented as of this encounter (statuses as of 04/21/2023) Medications Medication Sig Dispensed Refills Start Date End Date Status NSS 0.9% SOLN 250 mL with inFLIXimab 100 MG SOLR Administer intravenously once. 0 Active hydrocortisone 2.5%-clotrimazole 1% 1:1 Apply to corners of the lips twice daily as needed for flares. 15 g 0 11/27/2017 Active nystatin 885733 UNIT/GM creamIndications:Cu taneous candidiasis Apply to rash in the groin twice daily x 2 weeks. 30 g 0 07/17/2019 Active Aspirin 81 MG Tablet Take 1 Tablet by mouth in the morning. 0 Active hydrocortisone 2.5 % Administer into the rectum 2 times a day. 2.5 g 1 10/07/2019 Active Multi-Vitamins Oral Tablet Take 1 Tablet by [...] weeks IV. 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 Crohn's disease of colon 11/17/2014 documented as of this encounter (statuses as of 04/21/2023) Resolved Problems Problem Noted Date Diagnosed Date Resolved Date Prediabetes 10/31/2017 06/08/2018 Overview: Per Prediabetes protocol #1 documented as of this encounter (statuses as of 04/21/2023) Immunizations Name Administration Dates Next Due COVID-19 mRNA, LNP-s, No Pre serve, 2-Dose Series (Crambu) 01/28/2021,07/30/2020,07/04/2020 COVID-19, LNP-s, No Preserve , Bello-sucrose, Ages 12+ (Pfizer) 09/08/2021 Covid-19, Mrna, Lnp-s, Pf, B ivalent, 30 Mcg, IM, 12 yrs and above (Pfizer) 03/02/2022 Hepatitis B, 20+ yrs 05/13/2019,12/14/2018,11/13 PPD 10/09/2014 Pneumococcal Conjugate Vacc, 13 Valent (Prevnar) 04/06/2017 Pneumococcal Conjugate Vacci ne, 20-valent ([id number]) 02/28/2023 Pneumococcal Polysaccharide PPV23 (Pneumovax) 10/06/2017 Season [...] on file documented as of this encounter Miscellaneous Notes * Telephone Encounter - Luz Maria Evans RN - 04/20/2023 2:04 PM EST Call to patient to follow up on dressings, any further bleeding or other concerns. Patient put call on speaker for to participate in conversation. Dressing intact. Has had some minimal oozing at thigh. Right hand remains swollen. Has been keeping it elevated. Encouraged to continue same. Since this morning, his temp has been increasing. Started at 98.7 and last check was 99.9. Is taking ibuprofen. Aware to call if it continues to elevate higher than 100.9 or if other symptoms develop as per discharge instructions. has my direct number for any issues. documented in this encounter Plan of Treatment Upcoming Encounters Date Type Department Care Team (Late st Contact Info) Description 04/25/2023 10:00 AM EST Office Visit General Surgery, [facility] [address] [place] [address] Joshua Mayes MD [address] [place] [address] 06/09/2023 9:00 AM EST Scheduled Telephone Palliative Medicine, [facility] [address] [facility] 5th Floor [place] [address] [place], Nurse Palliative Medicine [facility] [address]th [address] [facility] [place] [address] 07/14/2023 2:00 PM EST Office Visit [facility] [address] [facility] [address] [place] [address] Tiffany Matutegalen Haily, DO [address] [place] [address] 10/09/2023 8:40 AM EDT Office Visit Neurology [facility] [place] [address] [facility] [place] [address] Enrike Miller MD [address] [facility] [place] [address] Health Maintenance Due Date Last Done Comments COLONOSCOPY-EVERY 2 YRS AGES 18-100 03/26/2020 03/26/2018, 03/26/2018, 11/14/2014, Additional history exists COVID-19 Vaccine (2022- season) 2023 03/02/2022, 09/08/2021, 01/28/2021, Additional history [...] Not on filedocumented as of this encounter Advance Directives Latest Code Status on File Code Status Date Activated Date Inactivated Comments Full Code 04/18/2023 6:51 AM 04/18/2023 4:10 PM Thi s order reflects the patients wishes and were consensually agreed upon. Question Answer Comments Discussion of Advance Directives occurred with: Not Discussed due to patient's condition Care Teams Plastic Battery Assembler Relationship Specialty Start Date End Date Valentina Jay DO [address] [place] [address] PCP - General Family Medicine 03/15/16 documented as of this encounter
--- OUTSIDE RECORDS SUMMARY | 2023-04-27 12:20 | External Medical Summary | Summary of Care ---
Author Name Unknown Organization [facility] Address [address] [place] [address] Phone [phone] Care Team Providers Care Stringed Instrument Assembler Name Role Phone Valentina Jay DO Primary Care Provider [phone] Reason for Referral * Precert (Within 10 days (routine)) - Authorized Specialty Diagnoses / Procedures Referred By Simeon t Referred To Contact Radiology Diagnoses [place] cell carcinoma (HCC) Procedures NM LYMPHATICS AND LYMPH NODE TECH INJECTION Joshua Mayes MD [address] [place] [address] Referral ID Status Reason Start Date Expiration Date V isits Requested Visits Authorized [id number] Authorized 04/18/2023 999 999 Reason for Visit * Reason Onset Date Comments Surgery 04/11/2023 Encounter Details Date Type Department Care Team (Late st Contact Info) Description 04/11/2023 Telephone General Surgery, [facility] [address] [place] [address] Joshua Mayes MD [address] [place] [address] Surgery Allergies No known active allergiesdocumented as of this encounter (statuses as of 04/21/2023) Medications Medication Sig Dispensed Refills Start Date End Date Status NSS 0.9% SOLN 250 mL with inFLIXimab 100 MG SOLR Administer intravenously once. 0 Active hydrocortisone 2.5%-clotrimazole 1% 1:1 Apply to corners of the lips twice daily as needed for flares. 15 g 0 11/27/2017 Active nystatin 108759 UNIT/GM creamIndications:Cu taneous candidiasis Apply to rash [...] before bedtime. 90 Tablet 5 02/28/2023 Active documented as of this encounter (statuses [...] mRNA, LNP-s, No Pre serve, 2-Dose Series (atVenu) 01/28/2021,07/30/2020,07/04/2020 COVID-19, LNP-s, No Preserve , Bello-sucrose, Ages 12+ (Pfizer) 09/08/2021 Covid-19, Mrna, Lnp-s, Pf, B ivalent, 30 Mcg, IM, 12 yrs and above (Pfizer) 03/02/2022 Hepatitis B, 20+ yrs 05/13/2019,12/14/2018,11/13 PPD 10/09/2014 Pneumococcal Conjugate Vacc, 13 Valent (Prevnar) 04/06/2017 Pneumococcal Conjugate Vacci ne, 20-valent ([id number]) 02/28/2023 Pneumococcal Polysaccharide PPV23 (Pneumovax) 10/06/2017 Season [...] Encounter - Luz Maria Evans RN - 04/11/2023 9:29 AM EST Message from Dr Mayes: He needs a wide excision and sentinel node- I think he is [facility] candidate- Can we get him on for 04/18? I told him you would call him today or tomorrow to set up- it is on his wrist- thanks- I would probably have the stuff there for a possible skin graft just in case- Call to patient. 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 Accepted surgery date of 04/18/23 at [facility]. Pre-surgery instructions reviewed. Summary sent in patient portal and patient instructed to review. All questions answered. documented in this encounter Plan of Treatment Upcoming Encounters Date Type Department Care Team (Late st Contact Info) Description 04/25/2023 10:00 AM EST Office Visit General Surgery, [facility] [address] [place] [address] Joshua Mayes MD [address] [place] [address] 06/09/2023 9:00 AM EST Scheduled Telephone Palliative Medicine, [facility] [address] [facility] 5th Floor [place] [address] [place], Nurse Palliative Medicine [facility] 5th [address] [facility] [place] [address] 07/14/2023 2:00 PM EST Office Visit Neurology [facility] [address] [facility] [place] [address] Jose Matute, DO [address] [place] [address] 10/09/2023 8:40 AM EDT Office Visit Neurology [facility] [address] [facility] [place] [address] Enrike Miller MD [address] [facility] [place] [address] Health Maintenance Due Date Last Done Comments [...] Not on filedocumented as of this encounter Results * NM LYMPHATICS AND LYMPH NODE TECH INJECTION (04/18/2023 7:22 AM EST) Narrative Scheduling, Silent - 04/18/2023 7:22 AM EST This procedure will not be read by a Radiologist. Please see operative note. Joshua Mayes MD RAD NUCLEAR MED documented in this encounter Visit Diagnoses Diagnosis [place] cell carcinoma (HCC)- Primary Cassie cell carcinoma [...] Discussed due to patient's condition Care Teams Stringed Instrument Assembler Relationship Specialty Start Date End Date Valentina Jay DO [address] [place] [address] PCP - General Family Medicine 03/15/16 documented as of this encounter
--- NOTE | 2023-04-27 12:49 | History & Physical Report ---
Date of Service April 27, 2023 Assessment & Plan (1) Generalized weakness: (2) COVID-19: (3) Left rib fracture: (4) Crohns disease: (5) Neurologic disorder: (6) [place] cell carcinoma: (7) Anal condyloma: (8) GERD (gastroesophageal reflux disease): Plan 67 year old male that Suspect patient has generalized weakness secondary to COVID 19 and overall immunocompromised immune system with related to his autoimmune condition with Crohn's. Supportive treatment with IV fluids, PT/OT, check urine for organic source of any infection as indicated blood was noted when he produced a urine sample today, check procalcitonin and WOCN eval for continued skin graft/biospy care. Additionally, while patient is followed by Neuro as an outpatient since patient having intermittent shakes, repeat EEG would be helpful which has been ordered. COVID-19: Generalized weakness: Acute COVID diagnosed 6 days ago via home test ED COVID 19 PCR pending; airborne precautions Worsening mental status and weakness since then 1L NS be administered in ED; continue maintenance fluid x 2 bags and reassess Check procalcitonin, blood cultures, urine culture EEG for completeness: last EEG 2017 Last Vitamin B-121: > 2,000 Last Vitamin D 02/21/23: 36 PT/OT Left rib fracture: Acute Secondary to fall Supportive treatment Chest CT indicated nondisplaced left lateral 10th rib fracture without pne umothorax Tylenol for pain Q6 No crepitus Crohn's disease: Chronic stable Diagnosed 41 years ago Follows with GI Currently on TNF treatment; Remicade Q 8 week infusions; resume as outpatient; next infusion scheduled for next week Q5 year colonoscopy Mild cognitive impairment: Chronic stable Takes Aricept and Namenda; continue FAST score: 4 Neurologic disorder: Chronic stable Follows with Dr. Matute neurology at [facility]; last appointment 01/13/2023 repeat EEG for completeness: last EEG 2017 Cassie cell carcinoma: Chronic stable Recent skin grafting for biopsy; right sentinel lymph node Focal CK20 positive cells R forearm excision + cassie cell R thigh skin graft; WOCN nurse eval/for continued care Oxy PRN s/p biospy; hold for now first oncology appt 05/[address] 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 Jay CODE STATUS: DNR.DNI VTE prophylaxis: Lovenox subcu I spent a total of 87 minutes coordinating, documenting, and providing care for this patient excluding time spent in the performance of separately billed services. All of the aforementioned completed while collaborating with the assigned attending physician for a full treatment plan. Please see their addendum for further details. History of Present Illness Chief Complaint: generalized weakness/fall Primary Care Provider: Valentina Jay DO Mr. Altamirano is a 67 year old male that presented to the ED with his after experiencing a fall. He was diagnosed with Covid-19 six days ago and his indicates that he has become weaker and weaker as the days progress. He notes it has been taking him longer to get out of bed approximately 10 minutes to get out of bed today his took him to the bathroom for a shower and he slid out of the shower chair but does not remember this episode. His indicates that he appears to be at his baseline mental status. He has early shelia ntia but is still able to anticipate and meet all of his ADL needs. He recently had 3 surface skin biopsies and the right wrist results were positive for Cassie cell carcinoma. Patient has an appointment with Dr. Koch on 05/11 with oncology. In the ED chest x-ray negative for acute cardiopulmonary disease, chest CT indicated nondisplaced left lateral 10th rib fracture without pneumothorax. A dditionally right axilla 5.4 x 3.[address] indicated left mastoid effusion but was negative for ICH, SDH or midline shift. No leukocytosis noted, will check procalcitonin as patient is COVID-positive, otherwise no SERGEI or other lab abnormalities. Patient normotensive without arrhythmia, afebrile and on room air Additional past medical history includes [place] Cell Carcinoma, Crohn's disease (on Remicade and follows with GI), neuro disorder with" Brown out syndrome" for which she follows with [facility] neurology, history of anal condyloma, HLD, mild dementia, and GERD. Noted in EMR from 01/14/2022 showed he had an LP which was positive for Alzheimer's markers and confirmed he has been having consistent difficulty with executive functioning and processing speeds. He is still driving. His last appointment with neurology was 01/11 10/11 indicating that he was stable without gait ataxia. Patient lives at that time still interested in monoclonal antibody against amyloid protein treatment that was being offered in [place] but he has not proceeded for such. Most recently and brain MRI was performed to rule out microhemorrhages; This was performed on 02/03/2023 without findings of acute infarct or intracranial hemorrhage will order mass affect with midline shift. Few scattered chronic microvascular changes and supra tentorial white matter and mild to moderate global volume loss was noted but ventricles and basal cisterns were normal without extra axial fluid collection. Patient was seen by general surgery on 04/25 and the following instructions were provided regarding skin care. Right wrist and right thigh are to have areas clean daily with soap and water without scrubbing and pat area dry; avoid soaking areas in tub/swimming pools etc. and avoid excessive hot water. Can be left uncovered and open to air if no drainage, keep area moist with petroleum jelly and can cover if needed with clean gauze and tape/wrap for bleeding. Avoid strenuous use of right wrist but we do want it to be moved to prevent stiffness; no strenuous activity for 6 months. Can use half-strength peroxide to clean around edges for any buildup. Pt denies CH, dizziness, SOB, abdominal pain or tenderness, appetite changes, swelling, visual or auditory changes, other trauma. Pt became frustrated with myself and previous encounters in the room if people did not address him directly as he feels that he is losing control and not included in care due to his dementia. Patient's indicated that he appears at baseline cognitive grande. Suspect patient has generalized weakness secondary to COVID 19 and overall immunocompromised immune system with related to his autoimmune condition. Supportive treatment with IV fluids, PT/OT, check urine for organic source of any infection as indicated blood was noted when he produced a urine sample today, check procalcitonin and WOCN eval for continued skin graft/biospy care. Additionally, while patient is followed by Neuro as an outpatient since patient having intermittent shakes, repeat EEG would be helpful which has been ordered. Patient will be admitted for further evaluation management. Please see A/P for further details. Allergies Allergy/AdvReac Type Severity Reaction Status Date / Time No Known Allergies Allergy Unverified 06/09/16 08:07 Home Medications Medication Instructions Recorded Confirmed Type Multiple Vitamins W/ Minerals 1 tab PO DAILY ##0 10/22/16 12/07/23 History (Multivitamin Men) Aspirin (Aspirin EC Low Dose) 81 mg PO DAILY 30 days #30 Tabs 05/05/16 04/27/23 Rx atorvastatin 80 mg tablet 80 mg PO DAILY 04/27/23 04/27/23 History donepezil 10 mg tablet 10 mg PO BID 04/27/23 04/27/23 History memantine 28 mg capsule 28 mg PO DAILY 04/27/23 04/27/23 History sprinkle,extended release 24hr omeprazole 20 mg capsule,delayed 20 mg PO DAILY 04/27/23 04/27/23 History release oxycodone 5 mg tablet 5 mg PO DIRECTED PRN Pain 04/27/23 04/27/23 History sildenafil (pulm.hypertension) 20 20 mg PO TID 04/27/23 04/27/23 History mg tablet Past Med/Surg History Medical History (Updated 04/27/23 @ 12:39 by IVON Hood) Cassie cell carcinoma Anal condyloma GERD (gastroesophageal reflux disease) Social History Smoking Status: Never smoker 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 Aircraft Maintenance Required: No Beliefs That Will Affect Care: None Feels Safe at Home: Yes Review of Systems Review of Systems: Neuro: (+) Falls, trauma, slurred speech HEENT: (-) CH, dizziness, dysphagia, visual or auditory changes CV: (-) CP, palpitations, swelling Resp: (-) SOB GI: (-) appetite changes, N/V/D, bowel changes : (+) urinary changes with hematuria Skin: (-) rashes Psych: (-) anxiety, depression Physical Exam Physical Exam: Neuro: AAOx4, PERRLA, no aphagia, memory changes, CNII-XII grossly intact HEENT: head normocephalic, moist mucus membranes CV: S1/S2, (-) M/G/R, (-) edema, cap refill < 3 seconds Resp: Lungs CTA in all rodgers. On RA GI: Abdomen S/NT/ND, Ax4 bowel sounds, (-) CVA tenderness Musculoskeletal: 4/5 B/L UE strength, 4/5 B/L LE strength. Uses a cane at baseline Skin: (-) rashes , (-) erythema. Right wrist and right thigh with gauze and PRAVEENA wrap Psych: euthymic mood Results & Data Results & Data Vital Signs (Past 12 Hours) Vital Signs Temp Pulse Pulse Resp BP Pulse Ox O2 Del Method 04/27/23 11:15 76 20 97 Room Air 04/27/23 08:56 112 H 04/27/23 08:55 36.8 C 101 H 19 136/107 H 95 Room Air Laboratory Results Short CBC 04/27/23 Range/Units 09:20 WBC 4.82 (4.8-10.8) K/ul Hgb 16.4 (14.0-18.0) g/dl Hct 47.9 (42.0-52.0) % Plt Count 160 (130-400) K/uL BMP 04/27/23 09:20 Sodium 138 Potassium 3.9 Chloride 106 Carbon Dioxide 24 BUN 12 Creatinine 0.89 Glucose 120 H Calcium 9.1 Liver Function 04/27/23 Range/Units 09:20 Total Bilirubin 0.8 (0.2-1.0) mg/dl AST 19 (13-39) U/L ALT 23 (7-52) U/L Alkaline Phosphatase 123 H (34-104) U/L Albumin 4.0 (3.4-5.0) gm/dl Diagnostic Findings Chest X-Ray 04/27/23 08:49 SINGLE VIEW CHEST CLINICAL HISTORY: Fall. Dyspnea. Covid. FINDINGS: An AP, portable, upright chest radiograph is compared to study dated 04/21/2023. The cardiomediastinal silhouette is top normal for projection. Chronic interstitial thickening similar to previous. There is bibasilar scarrin g/atelectasis. No airspace consolidation or large pleural effusion is identified. No pneumothorax is seen. There are chronic/healed right-sided rib fractures. IMPRESSION: No acute cardiopulmonary abnormality is identified. ACT 112: Negative or not required by law. Electronically signed by: Greg Castillo M.D. 04/27/2023 9:[address] 04/27/23 09:12 CT OF THE CHEST WITHOUT IV CONTRAST CLINICAL HISTORY: Left lateral chest wall pain s/p fall. COMPARISON STUDY: Chest radiograph performed earlier today. CT DOSE: 1349.85 mGy.cm TECHNIQUE: Axial images of the chest were obtained without IV contrast. Images were reviewed in the axial, sagittal, and coronal planes. IV contrast was not administered for this examination. Automated exposure control was utilized for the study. A dose lowering technique was utilized adhering to the principles of ALARA. FINDINGS: The thoracic aorta is suboptimally assessed on this unenhanced exam. However, there is no mediastinal hematoma. The heart is mildly enlarged. There is no pericardial effusion. There is no mediastinal or hilar lymphadenopathy. No pneumothorax or pleural effusion is present. Subpleural densities within the lower lobes represent atelectasis. There is an acute nondisplaced fracture of the posterolateral left 10th rib. Note is made of a 5.4 x 3.9 cm water attenuation density within the right axilla with adjacent stranding. There is no soft tissue gas. IMPRESSION: 1. Acute nondisplaced fracture the posterior lateral left 10th rib. No pneumothorax. 2. 5.4 x 3.9 cm water attenuation density within the right axilla with adjacent stranding. Although nonspecific, this favors postsurgical change such as a seroma. Correlation with surgical history is recommended. ACT 112: Negative or not required by law. Electronically signed by: Alireza Allen M.D. 04/27/2023 10:[address] 04/27/23 09:12 CT SCAN OF THE BRAIN WITHOUT IV CONTRAST CLINICAL HISTORY: Fall. COMPARISON STUDY: MRI of the brain dated 05/04/2016. TECHNIQUE: Unenhanced axial CT scan of the brain is performed from the vertex to the skull base. A dose lowering technique was utilized adhering to the principles of ALARA. FINDINGS: Brain parenchyma: There is age-related involutional change noting mild subcortical and periventricular microangiopathic disease. There is no hemorrhage, mass effect, or evidence of acute territorial ischemia by CT criteria. Tavares-white matter differentiation is preserved. No extra-axial fluid collection is seen. Ventricles, sulci, cisterns: Prominent secondary to involutional change. Intracranial vasculature: There is mild atherosclerotic calcification of the cavernous carotid arteries. Calvarium: The skeletal structures are osteopenic. No depressed calvarial fracture is seen. Sinuses and mastoids: There is mild mucosal thickening within the right maxillary antrum. Trace mucosal thickening is seen in the ethmoid sinuses. There is a large left mastoid effusion. The right mastoid air cells are well pneumatized. Orbits: The bony orbits are grossly intact. IMPRESSION: 1. There is no hemorrhage, mass effect, or evidence of acute territorial ischemia by CT criteria. 2. Left mastoid effusion. ACT 112: Negative or not required by law. Electronically signed by: Greg Castillo M.D. 04/27/2023 10:11 AM Code Status & VTE Plan Code Status DNR/DNI in the event of cardiac respiratory arrest VTE Prophylaxis Plan VTE Prophylaxis will be ordered: Yes Supervising Physician Co-Signing Physician Notes Pt seen and examined by myself, Carmelita Underwood MD on the day of service. Care was coordinated with IVON Gonzales. 67yoM with PMhx significant for Alzheimer's dementia, recently diagnosed Cassie Cell Carcinoma, recent covid and rhinovirus/enterovirus infection admitted with generalized weakness and falls at home. Hx obtained from pt and at bedside. Pt was seen in the ED on Apr 21, diagnosed with covid and rhinovirus/enterovirus infection. Also recently had a biopsy in right axilla, skin graft taken from right thigh to apply to right wrist. WBC normal, UA unremarkable, chest CT with an acute 10th rib fracture and seroma in right axilla. CT head with mastoid effusion notes frequent falls at home, most recent while in the shower. Notes he has been having "shakes" for which he follows with Neuro. Pt notes fracture likely happened while rolling out of bed. On exam pt AAOx3, notes Alzheimer's dx for last 10 years. R axillary area without signs of acute infection. Pt declines further examination of skin areas bandaged on R wrist and thigh, stating that he will remove the bandages when moved to a room; he does the dressings himself and applies vaseline. COVID/rhinovirus- supportive treatment, pt not hypoxic at this time Generalized weakness-likely in setting of acute viral processes including covid and rhinovirus/enterovirus. PT/OT, CM for placement. Falls/"shakes"-EEG, consider Neurology consult/follow up Mastoid Effusion- started on IV Cefepime for pseudomonas coverage, consider ENT consult/follow up Rib fracture- pain control Seroma- continue to monitor PT/OT, CM assistance, will likely need placement. Otherwise as above.
[2023-04-27 13:11] LABS: Magnesium 2.1 mg/dl (1.7-2.4)
[2023-04-27] MEDS ORDERED: ENOXAPARIN INJ 40 MG/0.4 ML SYR SQ SCH (14:00)
[2023-04-27] MEDS ORDERED: ACETAMINOPHEN 325 MG TAB PO SCH ×2 (14:00→22:00)
[2023-04-27 14:11] LABS: Appearance Urine Clear (Clear); Bacteria Urine Automated Negative (Negative); Bilirubin Urine Negative (Negative); Blood Urine 3+ (Negative); Cast Urine Automated 0 /lpf (0-5); Color Urine Yellow; Epithelial Cell Urine Auto 0-5 /lpf (0-5); Glucose Urine UA Negative (Negative); Ketones Urine Negative (Negative); Leukocyte Esterase Urine Negative (Negative); Nitrite Urine Negative (Negative); Protein Urine Negative (Negative); RBC Urine Automated >30 /hpf (0-4); Urobilinogen Urine Negative (Negative)
--- NOTE | 2023-04-27 14:24 | Electrocardiogram Report ---
Test Reason : Blood Pressure : / mmHG Vent. Rate : 098 BPM Atrial Rate : 098 BPM P-R Int : 152 ms QRS Dur : 138 ms QT Int : 392 ms P-R-T Axes : 029 -87 030 degrees QTc Int : 500 ms Normal sinus rhythm Right bundle branch block Left anterior fascicular block Bifascicular block Abnormal ECG When compared with ECG of 21-APR-2023 13:08, No significant change was found Confirmed by Josh Viera ([id number]) on 04/27/2023 2:23:38 PM Referred By: Confirmed By:Josh Viera
[2023-04-27] MEDS ORDERED: POTASSIUM PHOS 3 MMOL/1 ML INFUSION IV STA (15:58)
[2023-04-27] MEDS ORDERED: POTASSIUM PHOSPHATE 24 MMOL in SODIUM CHLORIDE 0.9% 500 ML IV ONE (16:15)
[2023-04-27] MEDS: IBUPROFEN 200 MG TAB PO SCH (16:56)
[2023-04-27] MEDS: SODIUM CHLORIDE 0.9% 1,000 ML IV SCH (16:56)
[2023-04-27] MEDS: CEFEPIME 2,000 MG in SYRINGE 0 ML IV SCH (16:56)
[2023-04-27] MEDS ORDERED: IBUPROFEN 200 MG TAB PO SCH (21:00)
[2023-04-28] MEDS: MEMANTINE HCL 10 MG TAB PO SCH ×3 (00:10→20:19)
[2023-04-28] MEDS: DONEPEZIL HCL 10 MG TAB PO SCH ×2 (00:10→10:21)
[2023-04-28] MEDS: IBUPROFEN 200 MG TAB PO SCH ×4 (00:29→20:19)
[2023-04-28] MEDS: CEFEPIME 2,000 MG in SYRINGE 0 ML IV SCH ×2 (00:30→09:06)
--- OUTSIDE RECORDS SUMMARY | 2023-04-28 03:46 | External Medical Summary | Summary of Care ---
Author Name Unknown Organization [facility] Address [address] [place] [address] Phone [phone] Care Team Providers Care Structural Steel Trades Worker Name Role Phone Valentina Jay DO Primary Care Provider [phone] Encounter Details Date Type Department Care Team (Late st Contact Info) Description 04/19/2023 11:00 AM EST Nurse Only General Surgery, [place] [address] [place] [address] Luz Maria Evans, RN [address] [place] [address] Allergies No known active allergiesdocumented as of this encounter (statuses as of 04/27/2023) Medications Medication Sig Dispensed Refills Start Date End Date Status NSS 0.9% SOLN 250 mL with inFLIXimab 100 MG SOLR Administer intravenously once. 0 Active hydrocortisone 2.5%-clotrimazole 1% 1:1 Apply to corners of the lips twice daily as needed for flares. 15 g 0 11/27/2017 Active nystatin 367155 UNIT/GM creamIndications:Cu taneous candidiasis Apply to rash [...] as of this encounter (statuses as of 04/27/2023) Active Problems Problem Noted Date Diagnosed Date Alzheimer disease 06/06/2022 Seizure-like activity 09/08/2020 Dyslipidemia, goal LDL below 130 03/01/2017 Mild cognitive impairment 07/17/2015 Regional enteritis 11/17/2014 Crohn's disease of colon 11/17/2014 documented as of this encounter (statuses as of 04/27/2023) Resolved Problems Problem Noted Date Diagnosed Date Resolved Date Prediabetes 10/31/2017 06/08/2018 Overview: Per Prediabetes protocol #1 documented as of this encounter (statuses as of 04/27/2023) Immunizations Name Administration Dates Next Due COVID-19 mRNA, LNP-s, No Pre serve, 2-Dose Series (Mobi-Moto) 01/28/2021,07/30/2020,07/04/2020 COVID-19, LNP-s, No Preserve , Bello-sucrose, Ages 12+ (Pfizer) 09/08/2021 Covid-19, Mrna, Lnp-s, Pf, B ivalent, 30 Mcg, IM, 12 yrs and above (Pfizer) 03/02/2022 Hepatitis B, 20+ yrs 05/13/2019,12/14/2018,11/13 PPD 10/09/2014 Pneumococcal Conjugate Vacc, 13 Valent (Prevnar) 04/06/2017 Pneumococcal Conjugate Vacci ne, 20-valent ([id number]) 02/28/2023 Pneumococcal Polysaccharide PPV23 (Pneumovax) 10/06/2017 Season [...] as of this encounter Progress Notes * Roosevelt Laguerre DO - 04/27/2023 12:11 PM EST Seen in clinic again for bleeding from the donor thigh site. The dressing was taken down. New vaseline gauze was then placed over the site. Then a compressive dressing with 4x4, ABD pads and an PRAVEENA wrap was placed over the site. Patient tolerated the procedure without issue. * Luz Maria Evans RN - 04/26/2023 3:10 PM EST Seen by Dr Laguerre for bleeding at right thigh donor site. documented in this encounter Plan of Treatment Upcoming Encounters Date Type Department Care Team (Late st Contact Info) Description 06/09/2023 9:00 AM EST Scheduled Telephone Palliative Medicine, [address] [place] [address] [place], Nurse Palliative Medicine [address] [place] [address] 07/14/2023 2:00 PM EST [facility] [address] [facility] [address] Jose Matute, [address] [facility] [place] [address] 10/09/2023 8:40 AM EDT Office Visit Neurology [place] Priscilla Saez [address] [place] [address] Enrike Miller MD [address] [facility] [place] [address] Health Maintenance Due Date Last Done Comments [...] Discussed due to patient's condition Care Teams Structural [employer] Trades Worker Relationship Specialty Start Date End Date Valentina Jay DO [address] [place] [id number] PCP - General Family Medicine 03/15/16 documented as of this encounter
[2023-04-28 07:29] LABS: Hematocrit (blood only) 44.3 % (42.0-52.0); Hemoglobin 15.2 g/dl (14.0-18.0); Mean Corpuscular Hemoglobin 31.6 pg (25.0-34.0); Mean Corpuscular Hgb Conc 34.3 g/dL (32.0-36.0); Mean Corpuscular Volume 92.1 fL (80.0-100.0); Mean Platelet Volume 10.3 fL (9.4-12.4); Platelet Count 168 K/uL (130-400); RDW Coefficient of Variation 11.7 % (11.5-14.5); RDW Standard Deviation 39.5 fL (36.4-46.3); Red Blood Count 4.81 M/uL (4.70-6.10); White Blood Count 6.86 K/ul (4.8-10.8)
[2023-04-28 07:51] LABS: Alanine Aminotransferase 21 U/L (7-52); Albumin Globulin Ratio 1.1 (0.9-2); Albumin Level 3.8 gm/dl (3.4-5.0); Alkaline Phosphatase 125 U/L (34-104); Anion Gap 6 (3-11); BUN Creatinine Ratio 12.5 (10-20); Bilirubin,Total 0.8 mg/dl (0.2-1.0); Blood Urea Nitrogen 11 mg/dl (6-23); Calcium 8.8 mg/dl (8.6-10.3); Carbon Dioxide 25 mmol/L (21-32); Chloride 108 mmol/L (98-107); Creatinine Clr Calc Pharmacy 85.6 ml/min; Est GFR (African American) 102.3 ml/min; Est GFR (Non-African American) 88.3 ml/min; Globulin 3.6 gm/dl (2.5-4.0); Glucose 108 mg/dl (70-99(Fasting)); Sodium 139 mmol/L (136-145); Total Protein 7.4 gm/dl (6.0-8.3)
--- NOTE | 2023-04-28 10:04 | Hospitalist Progress Note ---
Date of Service April 28, 2023 Assessment & Plan (1) Generalized weakness: (2) COVID-19: (3) Left rib fracture: (4) Crohns disease: (5) Neurologic disorder: (6) [place] cell carcinoma: (7) Anal condyloma: (8) GERD (gastroesophageal reflux disease): Plan Mr. 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 Matute neurology at [facility]; last appointment 01/13/2023 Last EEG 2016, repeat ordered Continue Donepezil 10mg Continue Memantine 28 daily MRI with contrast given recent Terrance cell diagnosis new "episodes" reported Neurology Consult #COVID-19: #Generalized weakness: Acute COVID diagnosed 6 days ago via home test ED COVID 19 PCR +; airborne precautions Worsening mental status and weakness since then EEG for completeness: last EEG 2016 Last Vitamin B-121: > 2,000 Last Vitamin D 02/21/23: 36 PT/OT on consult Symptom management CTM oxygen requirements, currently afebrile,no hypoxia #Acute left rib fracture: Acute Secondary to fall Supportive treatment Chest CT indicated nondisplaced left lateral 10th rib fracture without pneumothorax Tylenol for pain Q6 Abdominal binder to aid in comfort #Crohn's disease: Chronic stable Diagnosed 41 years ago Follows with GI, Dr Barragan Currently on TNF treatment; Remicade Q 8 week infusions; resume as outpatient; next infusion scheduled for next week #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 Koch - 1/2 nodes positive for cassie cell cancer -Consider Onc contingent #GERD: chronic stable Takes Omeprazole;continue Disposition: PCP: Dr. Jay CODE STATUS: DNR.DNI VTE prophylaxis: Lovenox subcu Admission and Anticipated Discharge Date Admission Date: April 27, 2023 Subjective Evaluated patient sitting at bedside. Denies any recent falls, states that he was simply weaker and weaker after the grafting on 04/17--somehow shifting himself on the bed he broke his rib. He states his pain is a 1-2 at this time Called over phone for further history. states that after the Terrance Cell removal, patient has been in and out of the ER for complications from the patient's surgical site, which is where she feels he may have been exposed to COVID. On 04/21 he had a fever and was told to go to ER to ensure he did not have infection of his grafts. There he was found to be COVID + At that time, he was noted to have a strange "flapping spell" which he has never experienced-- the states he rolled his head back, made jerking movements, and then recovered without any post-ictal like confusion. This occurred again on Monday in which he fell backwards into the shower, breaking his rib likely. He was bedridden since, which worried the and prompted the admission as the was unsure how to care for him in this situation Review of Systems Review of Systems: All systems reviewed & are unremarkable except as noted in Subjective Physical Exam Constitutional: WD/WN, vitals as above Cardiovascular: RRR, no murmur, no edema Gastrointestinal (Abdomen): normal bowel sounds, soft, nontender, no hepatosplenomegaly Musculoskeletal: 5/5 in strength, but appears tremulous Skin: right wrist skin graft, moist, no signs of overlying infection right anterior thigh--moist no signs of infection Results & Data Results & Data Vital Signs (Past 12 Hours) Vital Signs Temp Pulse Pulse Pulse Resp BP Pulse Ox 04/28/23 07:58 36.8 C 72 16 184/83 H 97 04/28/23 05:50 64 04/28/23 03:51 36.8 C 76 18 176/93 H 97 04/27/23 23:13 91 H 04/27/23 23:00 36.7 C 87 18 183/99 H 97 O2 Del Method 04/28/23 07:58 Room Air 04/28/23 05:50 04/28/23 03:51 Room Air 04/27/23 23:13 04/27/23 23:00 Room Air
[2023-04-28] MEDS: ASPIRIN 81 MG ECTAB PO SCH (10:13)
[2023-04-28] MEDS: ENOXAPARIN INJ 40 MG/0.4 ML SYR SQ SCH (10:14)
[2023-04-28] MEDS: ATORVASTATIN 40 MG TAB PO SCH (10:14)
[2023-04-28] MEDS: PANTOprazole 40 MG TAB PO SCH (10:14)
[2023-04-28] MEDS: POT PHOSPHATE MONOBASIC W/ SOD TAB PO SCH ×4 (10:14→20:19)
[2023-04-28] MEDS: SODIUM CHLORIDE 0.9% 1,000 ML IV SCH (10:21)
[2023-04-28 12:35] LABS: Appearance Urine Clear (Clear); Bilirubin Urine Negative (Negative); Blood Urine Negative (Negative); Color Urine Yellow; Glucose Urine UA Negative (Negative); Ketones Urine Negative (Negative); Leukocyte Esterase Urine Negative (Negative); Nitrite Urine Negative (Negative); Protein Urine Negative (Negative); Specific Gravity Urine 1.008 (1.000-1.030); Urobilinogen Urine Negative (Negative)
[2023-04-28] MEDS ORDERED: GADOBUTROL 65ML VIAL IV ONE (14:53)
--- NOTE | 2023-04-28 15:35 | Magnetic Resonance Report ---
MRI OF THE BRAIN WITHOUT AND WITH IV CONTRAST CLINICAL HISTORY: Seizure like activity, recent madhu cell. COMPARISON STUDY: MRI of the brain May 04, 2016. Head CT April 27, 2023. TECHNIQUE: Utilizing a 1.5 Valeria magnet and dedicated coil, multiplanar, multiecho imaging of the br ain was performed pre and postcontrast administration. IV administration of 8.4 mL of Gadavist contr ast was uneventful. Thin cut T1 post contrast imaging was performed. FINDINGS: There are no foci of restricted diffusion to suggest acute infarct. No acute intracranial h emorrhage, midline shift or mass effect is present. Ventricular system is unremarkable. Basal cistern s are patent. There are no extra-axial collections. Flow-voids for the major intracranial vessels are present. No intracranial mass or pathologic enhancement. There is no MR evidence for mesial temporal sclerosis. A few small white matter T2 hyperintense foci suggest small vessel disease. Calvarial sig nal is normal. There are postoperative findings within the sinuses. No evidence for acute sinusitis. There is mild ethmoid sinus mucosal thickening. Left mastoid effusion with shown on CT of April 27, 2023. IMPRESSION: 1. No acute intracranial findings. 2. No intracranial mass or pathologic enhancement. 3. Left mastoid effusion. ACT 112: Negative or not required by law. Electronically signed by: Alireza Allen M.D. 04/28/2023 3:34 PM
--- NOTE | 2023-04-28 16:37 | Neurology Consultation ---
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 Obtain EEG Recommend continue seizure precautions Utilize benzodiazepines emergently for breakthrough clinical seizure like activity Continue to monitor neurological assessments Obtain stat CT brain for any acute neurological decline Continue to monitor telemetry Continue to monitor for s/s of infection Metabolic workup VTE prophylaxis No driving per [place] state law due to loss of consciousness & loss of awareness Telehealth Consultation Telehealth Information Telehealth Information: I performed this visit using a real-time telehealth connection between my location and the patients location ([facility]). After connecting through interactive tele-video, patient was identified by name and date of and/or wristband check.Patient (or authorized healthcare inside technical sales representative) was informed that this was a telemedicine visit and it was being conducted confidentially over secure lines. My office door was closed and no one else was present in the room with me.Patient (or authorized healthcare inside technical sales representative) provided consent to proceed with the visit, expressed an understanding of privacy and security of the telemedicine visit, and gave permission to have a hospital inside technical sales representative in the room in order to assist with the visit and to conduct portions of the visit, as needed. I informed the patient (or authorized healthcare inside technical sales representative) that I reviewed their record and presented the opportunity for them to ask any questions regarding the visit today. The patient agreed to participate. History of Present Illness Reason for Consultation: Concern for seizure like events Requesting Physician: Dr. Sanchez Attending Physician: Destiny Sanchez MD History of Present Illness 57 yo male unfortunately has suffered two recent events which are concerning more so than his typical "events". He follows outpatient with Dr. Matute for dementia vs MCI and previously noted and described these events as depersonalization which in his account is typically lasting only seconds. This time presents to hospital after an event when his had to activate EMS as he also fell resulting in injury- rib fracture. While in the ER he was noted to have a recurrent event which he is unable to recall. He cannot accurately describe event when he fell either. at bedside reports violent upper extremity shaking and head falling. Notably he does not recall these events. There was no evidence of tongue biting or loss of bowels or bladder. He has undergone MRI of his brain with and without contrast. Fortunately no evidence of ongoing intracranial pathological process to account for these events. He has undergone an EEG today for which results remain pending. I have reviewed documentation describing some workup and attempted treatment with AEDs including Keppra Lamictal and Depakote. Patient reports these "brain events" can occur up to 550 times a day but has undergone shelter ambulatory EEG without evidence of epileptiform discharges and or epileptogenic focus. I have performed televideo consultation and appreciate patient able to answer most questions appropriately and follow commands without difficulty. He is able to correctly tell me who the Volunteer Assistant of the [facility] is currently. He can tell me correct change for $7.00 minus $0.75. He knows the next upcoming holidays and will follow complex/embedded commands. Notably he appears very frustrated and states that he wished he had time to prepare questions for me. He states he was surprised by a Neurology consult. His at bedside reports he is still driving. He states he is fine and that these "events" do not hinder his ability to perform ADLs including driving. Again noting he cannot recall witness events at home or in the ER when he reportedly was witness to have lost consciousness. I have expressed my concern for his safety and recommend he not drive or engage in activities that may result in worsened injury (e.g driving, swimming, tub bathing, climbing ladders, carrying objects on stairways) he was reluctant to recognize the safety concern. Notably recently diagnosed with SARS-CoV-2 and reports has been more lethargic and more weak since the diagnosis. He currently denies pain. Neurological exam appears nonlateralizing/nonfocal in terms of motor strength and coordination. Currently there is no reported cephalgia or cervicalgia. Denies chest pain/pa lpitations or shortness of breath. No reported changes in vision hearing dizziness or paresthesia Denies recent fevers chills nausea vomiting changes in bowels or bladder Denies recent medication changes, no reported recent travel Allergies Allergy/AdvReac Type Severity Reaction Status Date / Time No Known Allergies Allergy Unverified 06/09/16 08:07 Home Medications Medication Instructions Recorded Confirmed Type Multiple Vitamins W/ Minerals 1 tab PO DAILY ##0 03/12/16 04/27/23 History (Multivitamin Men) Aspirin (Aspirin EC Low Dose) 81 mg PO DAILY 30 days #30 Tabs 05/05/16 04/27/23 Rx atorvastatin 80 mg tablet 80 mg PO DAILY 04/27/23 04/27/23 History donepezil 10 mg tablet 10 mg PO BID 04/27/23 04/27/23 History memantine 28 mg capsule 28 mg PO DAILY 04/27/23 04/27/23 History sprinkle,extended release 24hr omeprazole 20 mg capsule,delayed 20 mg PO DAILY 04/27/23 04/27/23 History release oxycodone 5 mg tablet 5 mg PO DIRECTED PRN Pain 04/27/23 04/27/23 History sildenafil (pulm.hypertension) 20 20 mg PO TID 04/27/23 04/27/23 History mg tablet Patient History Medical History (Updated 04/27/23 @ 12:39 by IVON Hood) [place] cell carcinoma Anal condyloma GERD (gastroesophageal reflux disease) Social History Smoking Status: Never smoker Hx Alcohol Use: No Hx Substance Use: No Preferred Language: Mozambican Communication Ability: Effective Flavoring Oil Filterer Required: No Beliefs That Will Affect Care: None Current Living Situation: Spouse Current Living Situation Comment: home with Other Information That Helps Us Care for You: No Feels Safe at Home: Yes Safety Concerns: Feels Safe At This Time Assistive Devices: Cane Physical Exam Neurological Examination: Mental Status: Awake and alert. Oriented to person, place, and time. Fluency naming repetition appear grossly intact. Affect appears labile without overt aggression CN testing: I: Deferred II:Reports no changes in visual acuity III/IV/: No evidence of gaze preference, hippus, nystagmus or roving eye movements V: Facial sensation is difficult to reliably assess VII: Facial movements appear without evidence of asymmetry VIII: Hearing appears grossly intact to loud voice bilaterally IX/X: Palate is difficult to reliably assess XI: Shoulder shrug appears symmetric/ grossly intact bilaterally XII: Tongue protrudes midline without evidence of biting Motor exam: Strength appears grossly intact/symmetric in all extremities Sensory: Sensation is difficult to reliably assess Coordination: Deferred Reflexes: Deferred Gait: Deferred Results & Data Vital Signs (Past 12 Hours) Vital Signs Temp Pulse Pulse Resp BP Pulse Ox O2 Del Method 04/28/23 15:00 36.7 C 87 16 119/78 95 Room Air 04/28/23 07:58 36.8 C 72 16 184/83 H 97 Room Air 04/28/23 05:50 64 Laboratory Results Abnormal lab results 04/28/23 Range/Units 06:57 Chloride 108 H (98-107) mmol/L Glucose 108 H (70-99(Fasting)) mg/dl Alkaline Phosphatase 125 H (34-104) U/L Diagnostic Findings Brain MRI 04/28/23 11:12 MRI OF THE BRAIN WITHOUT AND WITH IV CONTRAST CLINICAL HISTORY: Seizure like activity, recent madhu cell. COMPARISON STUDY: MRI of the brain May 04, 2016. Head CT April 27, 2023. TECHNIQUE: Utilizing a 1.5 Valeria magnet and dedicated coil, multiplanar, multiecho imaging of the brain was performed pre and postcontrast administration. IV administration of 8.4 mL of Gadavist contrast was uneventful. Thin cut T1 post contrast imaging was performed. FINDINGS: There are no foci of restricted diffusion to suggest acute infarct. No acute intracranial hemorrhage, midline shift or mass effect is present. Ventricular system is unremarkable. Basal cisterns are patent. There are no extra-axial collections. Flow-voids for the major intracranial vessels are present. No intracranial mass or pathologic enhancement. There is no MR evidence for mesial temporal sclerosis. A few small white matter T2 hyperintense foci suggest small vessel disease. Calvarial signal is normal. There are postoperative findings within the sinuses. No evidence for acute sinusitis. There is mild ethmoid sinus mucosal thickening. Left mastoid effusion with shown on CT of April 27, 2023. IMPRESSION: 1. No acute intracranial findings. 2. No intracranial mass or pathologic enhancement. 3. Left mastoid effusion. ACT 112: Negative or not required by law. Electronically signed by: Alireza Allen M.D. 04/28/2023 3:34 PM Medications Administered Home Medications Medication Instructions Recorded Confirmed Last Taken Multiple Vitamins W/ Minerals 1 tab PO DAILY ##0 03/12/16 04/27/23 05/03/21 09:00 (Multivitamin Men) Aspirin (Aspirin EC Low Dose) 81 mg PO DAILY 30 days #30 Tabs 05/05/16 04/27/23 05/03/21 09:00 atorvastatin 80 mg tablet 80 mg PO DAILY 04/27/23 04/27/23 Unknown donepezil 10 mg tablet 10 mg PO BID 04/27/23 04/27/23 Unknown memantine 28 mg capsule 28 mg PO DAILY 04/27/23 04/27/23 Unknown sprinkle,extended release 24hr omeprazole 20 mg capsule,delayed 20 mg PO DAILY 04/27/23 04/27/23 Unknown release oxycodone 5 mg tablet 5 mg PO DIRECTED PRN Pain 04/27/23 04/27/23 Unknown sildenafil (pulm.hypertension) 20 20 mg PO TID 04/27/23 04/27/23 Unknown mg tablet Active Medications Generic Name Dose Route Start Last Admin Trade Name Freq PRN Reason Stop Dose Admin Aspirin 81 mg 04/28/23 09:00 04/28/23 10:13 Aspirin 81 Mg Ectab PO 05/28/23 08:59 81 mg DAILY JUAN DANIEL Administration Atorvastatin Calcium 80 mg 04/28/23 09:00 04/28/23 10:14 Atorvastatin 40 Mg Tab PO 05/28/23 08:59 80 mg DAILY JUAN DANIEL Administration Enoxaparin Sodium 40 mg 04/28/23 09:00 04/28/23 10:14 Enoxaparin Inj 40 Mg/0.4 Ml Syr SQ 05/28/23 08:59 40 mg QAM JUAN DANIEL Administration Ibuprofen 400 mg 04/27/23 16:04 04/28/23 15:46 Ibuprofen 200 Mg Tab PO 05/27/23 16:03 400 mg TID JUAN DANIEL Administration Memantine 10 mg 04/27/23 21:00 04/28/23 12:16 Memantine Hcl 10 Mg Tab PO 05/27/23 20:59 10 mg BID JUAN DANIEL Administration Protocol Pantoprazole Sodium 40 mg 04/28/23 09:00 04/28/23 10:14 Pantoprazole 40 Mg Tab PO 05/28/23 08:59 40 mg DAILY JUAN DANIEL Administration Potassium Phosphate 2 tab 04/28/23 09:00 04/28/23 15:46 Pot Phosphate Monobasic W/ Sod Tab PO 04/29/23 08:59 2 tab QID JUAN DANIEL Administration (1) Syncope Syncope type: vasovagal syncope Qualified Code(s): R55 - Syncope and collapse
--- NOTE | 2023-04-28 22:47 | Electroencephalogram ---
EEG Procedure Note Date of Service April 28, 2023 Start / End Times Start Time: 11:08 End Time: 11:28 Referring Physician Lia Gómez History A 67 year old male with confusion and "shaking". EEG performed for evaluation of epileptiform activity. Home Medication List Medication Instructions Recorded Confirmed Type Multiple Vitamins W/ Minerals 1 tab PO DAILY ##0 03/12/16 04/27/23 History (Multivitamin Men) Aspirin (Aspirin EC Low Dose) 81 mg PO DAILY 30 days #30 Tabs 05/05/16 04/27/23 Rx atorvastatin 80 mg tablet 80 mg PO DAILY 04/27/23 04/27/23 History donepezil 10 mg tablet 10 mg PO BID 04/27/23 04/27/23 History memantine 28 mg capsule 28 mg PO DAILY 04/27/23 04/27/23 History sprinkle,extended release 24hr omeprazole 20 mg capsule,delayed 20 mg PO DAILY 04/27/23 04/27/23 History release oxycodone 5 mg tablet 5 mg PO DIRECTED PRN Pain 04/27/23 04/27/23 History sildenafil (pulm.hypertension) 20 20 mg PO TID 04/27/23 04/27/23 History mg tablet Inpatient Medication List Aspirin (Aspirin 81 Mg Ectab) 81 mg PO DAILY [facility] Stop: 05/28/23 08:59 Last Admin: 04/28/23 10:13 Dose: 81 mg Documented By: BJ Atorvastatin Calcium (Atorvastatin 40 Mg Tab) 80 mg PO DAILY [facility] Stop: 05/28/23 08:59 Last Admin: 04/28/23 10:14 Dose: 80 mg Documented By: BJ Enoxaparin Sodium (Enoxaparin Inj 40 Mg/0.4 Ml Syr) 40 mg SQ QAM [facility] Stop: 05/28/23 08:59 Last Admin: 04/28/23 10:14 Dose: 40 mg Documented By: BJ Ibuprofen (Ibuprofen 200 Mg Tab) 400 mg PO TID [facility] Stop: 05/27/23 16:03 Last Admin: 04/28/23 20:19 Dose: 400 mg Documented By: Admin: 04/28/23 15:46 Dose: 400 mg Documented By: Admin: 04/28/23 10:19 Dose: 400 mg Documented By: Admin: 04/28/23 00:29 Dose: 400 mg Documented By: Admin: 04/27/23 16:56 Dose: 400 mg Documented By: QGV Memantine (Memantine Hcl 10 Mg Tab) 10 mg PO BID [facility]; Protocol Stop: 05/27/23 20:59 Last Admin: 04/28/23 20:19 Dose: 10 mg Documented By: Admin: 04/28/23 12:16 Dose: 10 mg Documented By: Admin: 04/28/23 00:10 Dose: Not Given Documented By: DAVID Pantoprazole Sodium (Pantoprazole 40 Mg Tab) 40 mg PO DAILY JUAN DANIEL Stop: 05/28/23 08:59 Last Admin: 04/28/23 10:14 Dose: 40 mg Documented By: BJ Potassium Phosphate (Pot Phosphate Monobasic W/ Sod Tab) 2 tab PO QID JUAN DANIEL Stop: 04/29/23 08:59 Last Admin: 04/28/23 20:19 Dose: 2 tab Documented By: Admin: 04/28/23 18:40 Dose: 2 tab Documented By: Admin: 04/28/23 15:46 Dose: 2 tab Documented By: Admin: 04/28/23 10:14 Dose: 2 tab Documented By: BJ Discontinued Medications Acetaminophen (Acetaminophen 325 Mg Tab) 650 mg PO Q8H JUAN DANIEL Stop: 04/27/23 15:00 Last Admin: 04/27/23 14:53 Dose: Not Given Documented By: JOSE Donepezil HCl (Donepezil Hcl 10 Mg Tab) 10 mg PO BID JUAN DANIEL Stop: 05/27/23 20:59 Last Admin: 04/28/23 10:21 Dose: Not Given Documented By: Admin: 04/28/23 00:10 Dose: Not Given Documented By: DAVID Enoxaparin Sodium (Enoxaparin Inj 40 Mg/0.4 Ml Syr) 40 mg SQ QAM JUAN DANIEL Stop: 04/27/23 15:00 Last Admin: 04/27/23 16:55 Dose: 40 mg Documented By: QGV Gadobutrol (Gadobutrol 65ml Vial) 8.4 ml IV ONCE ONE Stop: 04/28/23 14:54 Last Admin: 04/28/23 14:53 Dose: 8.4 ml Documented By: [facility] Sodium Chloride (Nss) 1,000 mls @ 999 mls/hr IV .Q1H1M ONE Stop: 04/27/23 12:50 Last Infusion: 04/27/23 13:11 Dose: Infused Documented By: Admin: 04/27/23 12:01 Dose: 999 mls/hr Documented By: MES Sodium Chloride (Nss) 1,000 mls @ 80 mls/hr IV .[id number] JUAN DANIEL Stop: 04/28/23 14:29 Last Admin: 04/28/23 10:21 Dose: Not Given Documented By: KJNathalie Infusion: 04/28/23 10:21 Dose: Infused Documented By: Admin: 04/27/23 16:56 Dose: 80 mls/hr Documented By: QGV Cefepime HCl 2,000 mg/ Syringe 20 mls @ 5 mls/min IV Q8H JUAN DANIEL; Protocol Stop: 05/07/23 15:59 Last Admin: 04/28/23 09:06 Dose: Not Given Documented By: Admin: 04/28/23 00:30 Dose: 5 mls/min Documented By: Admin: 04/27/23 16:56 Dose: 5 mls/min Documented By: QGV Potassium Phosphate 24 mmol/ (Sodium Chloride) 508 mls @ 88 mls/hr IV ONE ONE Stop: 04/27/23 22:01 Last Infusion: 04/28/23 01:30 Dose: Infused Documented By: Admin: 04/27/23 16:56 Dose: 88 mls/hr Documented By: QGV Miscellaneous (Memantine 28 Mg Capsule,Sprinkle,Er 24hr - Order Awaiting Action) 1 each N/A QS JUAN DANIEL Stop: 05/27/23 15:56 Last Admin: 04/27/23 19:09 Dose: Not Given Documented By: QGV Description This is a 21 electrode EEG with a single channel dedicated to limited EKG. The electrodes were placed in accordance with the International 10-20 system. REPORT: At the onset of the EEG the patient is awake. The background is continuous and symmetric. The posterior dominant rhythm is 10-11 Hz with a normal anterior to posterior gradient. There is intermittent frequent 2-3 Hz polymorphic delta activity. No stage II sleep transients are seen. Photic stimulation does not induce any abnormalities. Interpretation IMPRESSION: This is an abnormal awake and drowsy routine EEG due to intermittent generalized background slowing sugegstive of a non specific encephalopathy. No epileptiform activity is seen.
[2023-04-29] MEDS: PANTOprazole 40 MG TAB PO SCH (09:22)
[2023-04-29] MEDS: IBUPROFEN 200 MG TAB PO SCH ×2 (09:22→13:19)
[2023-04-29] MEDS: ATORVASTATIN 40 MG TAB PO SCH (09:23)
[2023-04-29] MEDS: MEMANTINE HCL 10 MG TAB PO SCH ×2 (09:23→19:58)
[2023-04-29] MEDS: ENOXAPARIN INJ 40 MG/0.4 ML SYR SQ SCH (09:23)
[2023-04-29] MEDS: DONEPEZIL HCL 10 MG TAB PO SCH (09:23)
[2023-04-29] MEDS: ASPIRIN 81 MG ECTAB PO SCH (09:23)
--- NOTE | 2023-04-29 13:28 | Hospitalist Progress Note ---
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 Matute neurology at [facility]; last appointment 01/13/2023 Last EEG 2016, repeat ordered Continue Donepezil 10mg Continue Memantine 28 daily MRI with contrast given recent [place] cell diagnosis new "episodes" reported : no mass lesions noted Neurology Consult: recommended LP with paraneoplastic panel *Long discussion with patient regarding LP. Explained the reasoning, r/o neoplastic encephalitis/meningitis/CSF involvement. Patient declines, states his "does not know what she is talking about." Patient stated he wishes to establish with Heme/Onc and let his oncologist "decide what is best" for him. Risks were explained and patient verbalized understanding. Patient declined any procedures at this point. #COVID-19: #Generalized weakness: Acute COVID diagnosed 6 days ago via home test ED COVID 19 PCR +; airborne precautions Worsening mental status and weakness since then EEG for completeness: last EEG 2016 Last Vitamin B-121: > 2,000 Last Vitamin D 02/21/23: 36 PT/OT on consult Symptom management CTM oxygen requirements, currently afebrile,no hypoxia [facility] referral pending: patient considering HH services, TBD #Acute left rib fracture: Acute Secondary to fall Supportive treatment Chest CT indicated nondisplaced left lateral 10th rib fracture without pneumothorax Tylenol for pain Q6 Abdominal binder to aid in comfort #Crohn's disease: Chronic stable Diagnosed 41 years ago Follows with GI, Dr Barragan Currently on TNF treatment; Remicade Q 8 week infusions; resume as outpatient; next infusion scheduled for next week #Skin graft #[place] cell carcinoma: Performed 04/17 Recent skin grafting for biopsy; right sentinel lymph node Focal CK20 positive cells R forearm excision + kylah cell R thigh skin graft; WOCN nurse eval/for continued care 16 hours open 8 hours cover, Vaseline for moisture: WC nurse consulted to ensure proper management first oncology appt 05/[address] 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 Jay CODE STATUS: DNR.DNI VTE prophylaxis: Lovenox subcu Patient declines any further lab draws at this time Admission and Anticipated Discharge Date Admission Date: April 27, 2023 Subjective Pain better controlled and more mobile today; generally tremulous, but patient attributes it to "being in the hospital" Proposed LP to patient--adamantly declined at this point and wishes to discuss with Oncologist Physical Exam Constitutional: generally tremulous Respiratory: normal respiratory effort, lungs clear to auscultation Cardiovascular: RRR, no murmur, no edema Musculoskeletal: able to stand and move to bedside chair Results & Data Results & Data Vital Signs (Past 12 Hours) Vital Signs Temp Pulse Resp BP Pulse Ox O2 Del Method 04/29/23 11:44 37 C 108 H 18 168/89 H 97 Room Air 04/29/23 07:21 36.7 C 78 14 126/76 93 Room Air 04/29/23 03:35 36.7 C 64 16 153/82 H 95 Room Air Medications Administered Home Medications Medication Instructions Recorded Confirmed Last Taken Multiple Vitamins W/ Minerals 1 tab PO DAILY ##0 03/12/16 04/27/23 05/03/21 09:00 (Multivitamin Men) Aspirin (Aspirin EC Low Dose) 81 mg PO DAILY 30 days #30 Tabs 05/05/16 04/27/23 05/03/21 09:00 atorvastatin 80 mg tablet 80 mg PO DAILY 04/27/23 04/27/23 Unknown donepezil 10 mg tablet 10 mg PO BID 04/27/23 04/27/23 Unknown memantine 28 mg capsule 28 mg PO DAILY 04/27/23 04/27/23 Unknown sprinkle,extended release 24hr omeprazole 20 mg capsule,delayed 20 mg PO DAILY 04/27/23 04/27/23 Unknown release oxycodone 5 mg tablet 5 mg PO DIRECTED PRN Pain 04/27/23 04/27/23 Unknown sildenafil (pulm.hypertension) 20 20 mg PO TID 04/27/23 04/27/23 Unknown mg tablet Active Medications Generic Name Dose Route Start Last Admin Trade Name Freq PRN Reason Stop Dose Admin Aspirin 81 mg 04/28/23 09:00 04/29/23 09:23 Aspirin 81 Mg Ectab PO 05/28/23 08:59 81 mg DAILY JUAN DANIEL Administration Atorvastatin Calcium 80 mg 04/28/23 09:00 04/29/23 09:23 Atorvastatin 40 Mg Tab PO 05/28/23 08:59 80 mg DAILY JUAN DANIEL Administration Donepezil HCl 10 mg 04/29/23 09:00 04/29/23 09:23 Donepezil Hcl 10 Mg Tab PO 05/29/23 08:59 10 mg DAILY JUAN DANIEL Administration Enoxaparin Sodium 40 mg 04/28/23 09:00 04/29/23 09:23 Enoxaparin Inj 40 Mg/0.4 Ml Syr SQ 05/28/23 08:59 40 mg QAM JUAN DANIEL Administration Ibuprofen 400 mg 04/27/23 16:04 04/29/23 13:19 Ibuprofen 200 Mg Tab PO 05/27/23 16:03 400 mg TID JUAN DANIEL Administration Memantine 10 mg 04/27/23 21:00 04/29/23 09:23 Memantine Hcl 10 Mg Tab PO 05/27/23 20:59 10 mg BID JUAN DANIEL Administration Protocol Pantoprazole Sodium 40 mg 04/28/23 09:00 04/29/23 09:22 Pantoprazole 40 Mg Tab PO 05/28/23 08:59 40 mg DAILY JUAN DANIEL Administration
[2023-04-29] MEDS ORDERED: ACETAMINOPHEN 325 MG TAB PO PRN (16:12)
[2023-04-30] MEDS: PANTOprazole 40 MG TAB PO SCH (10:09)
[2023-04-30] MEDS: MEMANTINE HCL 10 MG TAB PO SCH (10:10)
[2023-04-30] MEDS: ATORVASTATIN 40 MG TAB PO SCH (10:10)
[2023-04-30] MEDS: DONEPEZIL HCL 10 MG TAB PO SCH (10:10)
[2023-04-30] MEDS: ENOXAPARIN INJ 40 MG/0.4 ML SYR SQ SCH (10:10)
[2023-04-30] MEDS: ASPIRIN 81 MG ECTAB PO SCH (10:11)
--- NOTE | 2023-04-30 13:40 | Discharge Summary ---
Discharge Summary Date of Service April 30, 2023 Notes For Next Care Provider -Recommended LP given no seizure, new changes in "episodes" reported by , and recent Terrance Cell diagnosis; and patient declined -Susy loaiza given history of agitation/mood d/o -Advised patient not to drive Medication Changes From Visit none Admission HPI Per Admitting Provider Mr. Altamirano is a 67 year old male that presented to the ED with his after experiencing a fall. He was diagnosed with Covid-19 six days ago and his indicates that he has become weaker and weaker as the days progress. He notes it has been taking him longer to get out of bed approximately 10 minutes to get out of bed today his took him to the bathroom for a shower and he slid out of the shower chair but does not remember this episode. His indicates that he appears to be at his baseline mental status. He has early dementia but is still able to anticipate and meet all of his ADL needs. He recently had 3 surface skin biopsies and the right wrist results were positive for [place] cell carcinoma. Patient has an appointment with Dr. Koch on 05/11 with oncology. In the ED chest x-ray negative for acute cardiopulmonary disease, chest CT indicated nondisplaced left lateral 10th rib fracture without pneumothorax. Additionally right axilla 5.4 x 3.[address] indicated left mastoid effusion but was negative for ICH, SDH or midline shift. No leukocytosis noted, will check procalcitonin as patient is COVID-positive, otherwise no SERGEI or other lab abnormalities. Patient normotensive without arrhythmia, afebrile and on room air Additional past medical history includes Cassie Cell Carcinoma, Crohn's disease (on Remicade and follows with GI), neuro disorder with" Brown out syndrome" for which she follows with [facility] neurology, history of anal condyloma, HLD, mild dementia, and GERD. Noted in EMR from 01/14/2022 showed he had an LP which was positive for Alzheimer's markers and confirmed he has been having consistent difficulty with executive functioning and processing speeds. He is still driving. His last appointment with neurology was 01/11 10/11 indicating that he was stable without gait ataxia. Patient lives at that time still interested in monoclonal antibody against amyloid protein treatment that was being offered in [place] but he has not proceeded for such. Most recently and brain MRI was performed to rule out microhemorrhages; This was performed on 02/03/2023 without findings of acute infarct or intracranial hemorrhage will order mass affect with midline shift. Few scattered chronic microvascular changes and supra tentorial white matter and mild to moderate global volume loss was noted but ventricles and basal cisterns were normal without extra axial fluid collection. Patient was seen by general surgery on 04/25 and the following instructions were provided regarding skin care. Right wrist and right thigh are to have areas clean daily with soap and water without scrubbing and pat area dry; avoid soaking areas in tub/swimming pools etc. and avoid excessive hot water. Can be left uncovered and open to air if no drainage, keep area moist with petroleum jelly and can cover if needed with clean gauze and tape/wrap for bleeding. Avoid strenuous use of right wrist but we do want it to be moved to prevent stiffness; no strenuous activity for 6 months. Can use half-strength peroxide to clean around edges for any buildup. Pt denies CH, dizziness, SOB, abdominal pain or tenderness, appetite changes, swelling, visual or auditory changes, other trauma. Pt became frustrated with myself and previous encounters in the room if people did not address him directly as he feels that he is losing control and not included in care due to his dementia. Patient's indicated that he appears at baseline cognitive grande. Suspect patient has generalized weakness secondary to COVID 19 and overall immunocompromised immune system with related to his autoimmune condition. Supportive treatment with IV fluids, PT/OT, check urine for organic source of any infection as indicated blood was noted when he produced a urine sample today, check procalcitonin and WOCN eval for continued skin graft/biospy care. Additionally, while patient is followed by Neuro as an outpatient since patient having intermittent shakes, repeat EEG would be helpful which has been ordered. Patient will be admitted for further evaluation management. Please see A/P for further details. Admission Exam Per Admitting Provider Neuro: AAOx4, PERRLA, no aphagia, memory changes, CNII-XII grossly intact HEENT: head normocephalic, moist mucus membranes CV: S1/S2, (-) M/G/R, (-) edema, cap refill < 3 seconds Resp: Lungs CTA in all rodgers. On RA GI: Abdomen S/NT/ND, Ax4 bowel sounds, (-) CVA tenderness Musculoskeletal: 4/5 B/L UE strength, 4/5 B/L LE strength. Uses a cane at baseline Skin: (-) rashes , (-) erythema. 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 reported two "events" that included head going limp, eyes rolling back, with "flapping motions" of arms. Patient denies these events. Patient attributes coordination and general, new onset tremulousness to "pain" that he doesn't outwardly express. It is noted that he improved over 72 hours since admission as far as mobility, however, still notably tremulous and easily agitated during examination. Discuss with neurology was had and LP was recommended given symptomatology and negative MRI. Patient refused LP and hesitant to pursue. Patient requesting to follow up with Heme/Onc and see "progress once rib is better" prior to investigating reported "events" further. On day of discharge, patient was ambulating with notable tremulousness, but with strength intact, eating well, and stating pain is well controlled with binder in place. No fevers or signs of infections noted; graft on wrist appeared to be healing appropriately without signs of infection or concerns. It was emphasized patient should avoid driving. Patient verbalized understanding. 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 Matute neurology at [facility]; last appointment 01/13/2023 Last EEG 2016, repeat ordered Continue Donepezil 10mg Continue Memantine 28 daily MRI with contrast given recent Terrance cell diagnosis new "episodes" reported : no mass lesions noted Neurology Consult: recommended LP with paraneoplastic panel *Long discussion with patient regarding LP. Explained the reasoning, r/o neoplastic encephalitis/meningitis/CSF involvement. Patient declines, states his "does not know what she is talking about." Patient stated he wishes to establish with Heme/Onc and let his oncologist "decide what is best" for him. Risks were explained and patient verbalized understanding. Patient declined any procedures at this point. Recommend OP follow up with Neurology #COVID-19: #Generalized weakness: Acute COVID diagnosed 6 days ago via home test ED COVID 19 PCR +; airborne precautions Worsening mental status and weakness since then EEG for completeness: last EEG 2016 Last Vitamin B-121: > 2,000 Last Vitamin D 02/21/23: 36 PT/OT on consult Symptom management CTM oxygen requirements, currently afebrile,no hypoxia [facility] referral pending: declined rehab at this time, requested services #Acute left rib fracture: Acute Secondary to fall Supportive treatment Chest CT indicated nondisplaced left lateral 10th rib fracture without pneumothorax Tylenol for pain Q6 Abdominal binder to aid in comfort #Crohn's disease: Chronic stable Diagnosed 41 years ago Follows with GI, Dr Barragan Currently on TNF treatment; Remicade Q 8 week infusions; resume as outpatient; next infusion scheduled for next week #Skin graft #[place] cell carcinoma: Performed 04/17 Recent skin grafting for biopsy; right sentinel lymph node Focal CK20 positive cells R forearm excision + cassie cell R thigh skin graft; WOCN nurse eval/for continued care 16 hours open 8 hours cover, Vaseline for moisture: WC nurse consulted to ensure proper management first oncology appt 05/[address] Koch - 1/2 nodes positive for cassie cell cancer -Keep appointment to establish with onc in coming weeks #GERD: chronic stable Takes Omeprazole;continue Discharge Exam Constitutional WD/WN, vitals as above (general tremulousness, persistent since admission ) Respiratory normal respiratory effort, lungs clear to auscultation Cardiovascular RRR, no murmur, no edema Gastrointestinal (Abdomen) normal bowel sounds, soft, nontender, no hepatosplenomegaly Musculoskeletal no cyanosis or clubbing, extremities motor strength 5/5 Skin right wrist graft appears to be healing well, moist with Vaseline, no signs of superimposed infection Right thigh graft healing well Updated Medication List Medication Instructions Recorded Confirmed Type Multiple Vitamins W/ Minerals 1 tab PO DAILY ##0 03/12/16 04/27/23 History (Multivitamin Men) Aspirin (Aspirin EC Low Dose) 81 mg PO DAILY 30 days #30 Tabs 05/05/16 04/27/23 Rx atorvastatin 80 mg tablet 80 mg PO DAILY 04/27/23 04/27/23 History donepezil 10 mg tablet 10 mg PO BID 04/27/23 04/27/23 History memantine 28 mg capsule 28 mg PO DAILY 04/27/23 04/27/23 History sprinkle,extended release 24hr omeprazole 20 mg capsule,delayed 20 mg PO DAILY 04/27/23 04/27/23 History release oxycodone 5 mg tablet 5 mg PO DIRECTED PRN Pain 04/27/23 04/27/23 History sildenafil (pulm.hypertension) 20 20 mg PO TID 04/27/23 04/27/23 History mg tablet Hospital Stay Data Consultations 04/27/23 11:58 ED Decision to Admit Stat 04/27/23 12:20 ED Decision to Admit Stat 04/28/23 11:28 Consult Neurology Routine Diagnostic Imagining Performed 04/27/23 09:12 CT chest without contrast [CT chest diagnostic wo con] Stat CT head/brain wo con Stat 04/28/23 11:12 MRI Brain [MR brain wo/w con] Routine Pending Results Patient Have Any Pending Studies at Discharge: No Discharge Instructions Given to Patient (Per Discharging Provider) You were admitted for concerns of weakness and pain. You were found to have a left rib fracture. Please continue to use tylenol at home (650 mg every 4-6 hours as you need) Please use the abdominal binder for comfort as needed. There were no other changes to your medications. Please resume all medications as previously prescribed. Please follow up with Oncology, PCP, and your surgeon as previously scheduled. During your hospitalization, you were evaluated by Neurology. Given the observed tremulously, it was recommended that you undergo a lumbar puncture. It was determined that you would discuss this once you establish with your Oncologist. Please consider follow up with established Neurologist. Home Health Attestation I certify that this patient is under my care and that I, or a physicians assistant dean working with me, had a face to-face encounter that meets the home health [id number] encounter requirements with this patient. The encounter with the patient was in whole, or in part, for the following medical condition, which is the primary reason for home health care (list medical condition): Covid I certify that, based on my findings, the following services are medically necessary home health services: My clinical findings support the need for the above services because: OT Assess ADL Status and Restore Function w ADLs PT Assessment for Endurance / Balance / Strength PT Eval for Safety and Mobility PT Eval for Safety, Gait Training, Assistive Devices PT Gait and Balance Training, Strengthening and Safety Skilled Nsg Assessment Further, I certify that my clinical findings support that this patient is homebound (i.e. absences from home require considerable and taxing effort and are for medical reasons or congregation services or infrequently or of short duration when for other reasons) because: Poor Endurance; SOB Minimal Exertion Certification for Home Health Services: Based on the above findings, I certify that this patient is confined to the home and needs intermittent snf care, physical therapy and/or speech therapy or continues to need occupational therapy. The patient is under my care, and I have initiated the establishment of the plan of care. This patient will be followed by a physician who will periodically review the plan of care. Total Time Total Time Spent Total Time Spent (In Minutes): 45
== END 2023-04-30 14:30 | disposition home health service (06) | DRG 178 ==
LOC: ED 08:47 → SUATTDRO 12:31 → EDINP 12:31 → 2N 21:55